=== PATIENT | female | born 1985 | race Caucasian/White ===

== ENCOUNTER 2022-02-16 15:23 | Outpatient (CLI) | payer BC, SELFPAY ==
[2022-02-18 23:15] LABS: Rapid Plasma Reagin (RPR) Non Reactive (Non Reactive)
== END 2022-02-16 15:24 | disposition home or self-care (01) ==
LOC: NFLDREF 15:24
PROVIDERS: PCP Obstetrics & Gynecology; Visit Provider Advanced Practice Midwife
DX: Z34.93 Encounter for supervision of normal pregnancy, unspecified, third trimester (principal); Z3A.29 29 weeks gestation of pregnancy
CPT/HCPCS: 86592

== ENCOUNTER 2022-02-23 14:04 | Outpatient (CLI) | payer BC, SELFPAY ==
--- NOTE | 2022-02-23 14:00 | CRLHL7_ITS ---
For Patients: As a result of the Century Cures Act, medical imaging exams and procedure reports are released immediately into your electronic medical record. You may view this report before your referring provider. If you have questions, please contact your health care provider. INDICATION: Third trimester scan, evaluate growth. COMPARISON: 10/20/2021 TECHNIQUE: Real time greer scale imaging of the fetus was performed. FINDINGS: Sonographic imaging demonstrates a single living intrauterine gestation. Fetus demonstrates a regular cardiac rate of 141 beats per minute. Fetus has a vertex position. The placenta lies posteriorly. Amniotic fluid volume appears normal and there is a single deepest vertical pocket: 5.3 cm. The estimated weight is 1553gm which lies at the 49th %. BPD 65th percentile. HC 69th percentile. AC 66th percentile. FL 15th percent. The HC/AC ratio measures 1.09 range (0.96-1.18). IMPRESSION: Sonographic gestational age 30 weeks 5 days and sonographic due date 04/29/2022. Sonographic age 5 days ahead of the clinical age. Estimated weight 49th percentile. Abdominal circumference 66th percentile. Dictated by Aly Butterfield MD @ 02/23/2022 3:35:56 PM (Electronically Signed)
== END 2022-02-23 14:05 | disposition home or self-care (01) ==
LOC: US 14:05
PROVIDERS: PCP Obstetrics & Gynecology; Visit Provider Physician Assistant
DX: Z34.93 Encounter for supervision of normal pregnancy, unspecified, third trimester (principal); Z3A.30 30 weeks gestation of pregnancy
CPT/HCPCS: 76816

== ENCOUNTER 2022-04-11 12:17 | Outpatient (CLI) | payer BC, SELFPAY ==
--- NOTE | 2022-04-11 12:15 | CRLHL7_ITS ---
For Patients: As a result of the Century Cures Act, medical imaging exams and procedure reports are released immediately into your electronic medical record. You may view this report before your referring provider. If you have questions, please contact your health care provider. OB ULTRASOUND, 04/11/2022 CLINICAL HISTORY: Measuring small for dates. JANES by LMP: 05/04/2022. GA: 36 w, 5 d. Single. Cervix: Not visualized. positioning: Vertex. Amniotic Fluid: 3.8 cm SDP (N: Increase 2 x 1 cm). Placenta: Technique: Transabdominal. Position: Left wall. Doppler: heart rate: 147 bpm. Biometry: BPD: 8.8 cm. 35 w, 3 d, 27 percent. HC: 32.1 cm. 36 w, 2 d, 15 percent. AC: 32.4 cm. 36 w, 2 d, 52 percent. FL: 7.0 cm. 35 w, 6 d, 27 percent. FL/AC ratio: 21.61%. HC/AC ratio: 0.99. EFW: 2852 g. Weight: 6 lbs, 5 oz. age by this US: 36 w, 0 d. JANES by this US: 05/09/2022. Percentile by JANES: 38%. IMPRESSION: Single live intrauterine gestation with composite gestational age of 36 weeks 0 days. JANES of 05/09/2022. Estimated weight is 2852 grams which lies at the 38th percentile. Stephanie Gary M.D. Diagnostic/Breast Radiologist [email or web address] BONNIE/silvino dubois/Dictated by: Stephanie Gary MD @ 04/11/2022 1:35:00 PM (Electronically Signed)
--- OUTSIDE RECORDS SUMMARY | 2022-04-11 12:19 | XMS_ITS | Clinical Summary ---
:1985 Author Organization [employer] [facility] Address [place] [address] Care Team Providers Name Role Phone Pcp, No Primary Care Provider Unavailable Allergies Active Allergy Reactions Severity Noted Date Comments Amoxicillin Hives 05/17/2014 Medications No known medications Active Problems No known active problems Resolved Problems Problem Noted Date Resolved Date Normal delivery at term 01/15/2016 02/27/2016 Encounter for supervision of normal first 09/13/19 16 02/27/2016 Overview: G1 GBS negative Encounter for supervision of normal first in first 06/16/2015 02/27/2016 trimester Immunizations Name Administration Dates Next Due Influenza, IIV4 03/21/2016, 06/16/2015 Influenza, IIV4 (=>6mos) MDV 06/04/2017 Tdap 11/04/2015 Family History Medical History Relation Name Comments Stroke Maternal Grandmother Allergies Sister Relation Name Status Comments Father Alive Maternal Grandfather Maternal Grandmother Mother Alive Paternal Grandfather Paternal Grandmother Alive Sister Alive Social History Tobacco Use Types Packs/Day Years Used Date Never Smoker Smokeless Tobacco: Never Used Tobacco Cessation: Counseling Given: Yes Alcohol Use Standard Drinks/Week Comments No 0 (1 standard drink = 0.6 oz pure alcoho l) Sex Assigned at Date Recorded Not on file Obstetrics History Para Term AB IAB SAB Ectopic Multiple Living Live Births 1 1 1 0 0 0 0 0 0 1 1 Date Outcome GA Total Labor/2nd/3rd Weight Sex Delivery Anes PTL Ariela A 1 A5 Name Clin Labor 01/14 Term 40w 3.32 kg F Vag None Lanny 7 8 FETZE /2016 4d (7 lb 5 ng R,BG oz) ELSA Complications: None Delivery Location: [facility] Last Filed Vital Signs Vital Sign Reading Time Taken Comments Blood Pressure 99/67 05/25/2020 10:28 AM INSTRUMENTATION SUPERVISOR Pulse 87 05/25/2020 10:28 AM INSTRUMENTATION SUPERVISOR Temperature 36.7 ??C (98 ??F) 05/25/2020 10:28 AM INSTRUMENTATION SUPERVISOR Respiratory Rate 18 01/19/2016 12:00 PM CDT Oxygen Saturation 99% 05/25/2020 10:28 AM INSTRUMENTATION SUPERVISOR Inhaled Oxygen Concentration - - Weight 56.2 kg (124 lb) 02/17/2018 11:34 AM CDT Height 160.7 cm (5' 3.25) 02/17/2018 11:34 AM CDT Body Mass Index 21.79 02/17/2018 11:34 AM CDT Plan of Treatment Health Maintenance Due Date Last Done Comments Hepatitis C screening for age 18-79 11/29/2003 BMI (ht and wt on same day) for age 0802/17/2019 02/17/2018, 02/27/2016, 18+ 10/31/2015 COVID-19 vaccine series (4 - Booster 08/10/2021 06/15/2021, 10/20/2020, for Moderna series) 09/21/2020 Influenza for age 9-49 03/08/2022 06/04/2017, 03/21/2016, 06/16/2015 Depression screening for age 12+ 04/11/2022 04/11/2021 Pap test for age 21-65 03/04/2023 03/04/2020, 03/04/2020, 06/16/2015 Tetanus booster 11/03/2025 11/04/2015 Tdap Completed 11/04/2015 Results Not on filefrom Last 3 Months Insurance Payer Benefit Plan / Subscriber ID Effective Dates Phone Addre ss Type Group [employer] [place] [employer] [id number] 2018-Present [address] [address] [place] [address] Advance Directives Latest Code Status on File Code Status Date Activated Date Inactivated Comments Full Code 01/15/2016 3:06 PM 01/17/2016 12:23 AM Full Code 01/15/2016 12:28 PM 01/15/2016 3:06 PM Full Code 01/15/2016 11:49 AM 01/15/2016 12:28 PM Care Teams Pharmaceutical Officer Relationship Specialty Start Date End Date Pcp, No PCP - General 05/25/21 .
== END 2022-04-11 12:18 | disposition home or self-care (01) ==
PROVIDERS: PCP Obstetrics & Gynecology; Visit Provider Obstetrics & Gynecology
DX: O36.5930 Maternal care for other known or suspected poor fetal growth, third trimester, not applicable or unspecified (principal); Z3A.36 36 weeks gestation of pregnancy
CPT/HCPCS: 76816; 87081; 87653

== ENCOUNTER 2022-04-18 14:58 | Outpatient (CLI) | payer BC, SELFPAY ==
--- OUTSIDE RECORDS SUMMARY | 2022-04-18 15:00 | XMS_ITS | Clinical Summary ---
:1985 Author Organization [employer] [facility] [place] [address] Care Team Providers Name Role Phone Pcp, [...] R,BG oz) ELSA Complications: None Delivery Location: [facility] Last Filed Vital Signs Vital Sign Reading Time Taken Comments Blood Pressure 99/67 05/25/2020 10:28 AM EXECUTIVE CYBER LEADER Pulse 87 05/25/2020 10:28 AM EXECUTIVE CYBER LEADER Temperature 36.7 ??C (98 ??F) 05/25/2020 10:28 AM EXECUTIVE CYBER LEADER Respiratory Rate 18 01/19/2016 12:00 PM CDT Oxygen Saturation 99% 05/25/2020 10:28 AM EXECUTIVE CYBER LEADER Inhaled Oxygen Concentration - - Weight 56.2 [...] Type Group [employer] [id number] 2018-Present [address] [address] [place] [address] Advance Directives Latest Code Status on File Code Status Date Activated Date Inactivated Comments Full Code 01/15/2016 3:06 PM 01/17/2016 12:23 AM Full Code 01/15/2016 12:28 PM 01/15/2016 3:06 PM Full Code 01/15/2016 11:49 AM 01/15/2016 12:28 PM Care Teams Operating Room Rn Relationship Specialty Start Date End Date Pcp, No PCP - General 05/25/21 .
== END 2022-04-18 14:59 | disposition home or self-care (01) ==
LOC: US 14:59
PROVIDERS: PCP Obstetrics & Gynecology; Visit Provider Pediatrics Neonatal-Perinatal Medicine
DX: O09.523 Supervision of elderly multigravida, third trimester (principal); Z3A.37 37 weeks gestation of pregnancy
CPT/HCPCS: 76816

== ENCOUNTER 2022-04-30 16:38 | Outpatient (CLI) | payer BC, SELFPAY ==
--- OUTSIDE RECORDS SUMMARY | 2022-04-30 16:41 | XMS_ITS | Clinical Summary ---
:1985 Author Organization [employer] [facility] [place] [address] Care Team Providers Name Role Phone Pcp, [...] R,BG oz) ELSA Complications: None Delivery Location: [facility] Last Filed Vital Signs Vital Sign Reading Time Taken Comments Blood Pressure 99/67 05/25/2020 10:28 AM TRACK DRESSER Pulse 87 05/25/2020 10:28 AM TRACK DRESSER Temperature 36.7 ??C (98 ??F) 05/25/2020 10:28 AM TRACK DRESSER Respiratory Rate 18 01/19/2016 12:00 PM CDT Oxygen Saturation 99% 05/25/2020 10:28 AM TRACK DRESSER Inhaled Oxygen Concentration - - Weight 56.2 [...] Type Group [employer] [id number] 2018-Present [address] [address] [place] [address] Advance Directives Latest Code Status on File Code Status Date Activated Date Inactivated Comments Full Code 01/15/2016 3:06 PM 01/17/2016 12:23 AM Full Code 01/15/2016 12:28 PM 01/15/2016 3:06 PM Full Code 01/15/2016 11:49 AM 01/15/2016 12:28 PM Care Teams Rv Repairer Relationship Specialty Start Date End Date Pcp, No PCP - General 05/25/21 .
[2022-04-30 16:58] VITALS: BP 130/79; PULSE 75
[2022-04-30 17:34] LABS: Amnisure Rom* Negative
--- NOTE | 2022-04-30 18:05 | CRLHL7_ITS ---
For Patients: As a result of the Century Cures Act, medical imaging exams and procedure reports are released immediately into your electronic medical record. You may view this report before your referring provider. If you have questions, please contact your health care provider. INDICATION: Decelerations on monitoring. TECHNIQUE: Ultrasound OB pelvis. COMPARISON: 04/18/2022 FINDINGS: Sonographic imaging demonstrates a single living intrauterine gestation. Fetus demonstrates a regular cardiac rate of 106 beats per minute. Fetus has a breech orientation. The placenta lies on the maternal left. Nuchal cord is noted (x2). Amniotic fluid volume appears normal with the single deepest pocket measuring 4.5 cm. breathing movements, motion, and tone were all observed. IMPRESSION: 1. Single live intrauterine with a biophysical profile of 8/8. 2. Nuchal cord. 3. heart rate of 106. Dictated by David Elizabeth MD @ 04/30/2022 8:03:55 PM (Electronically Signed)
[2022-04-30 20:22] VITALS: BP 151/83; PULSE 70
[2022-04-30 20:37] VITALS: BP 127/70; PULSE 74
--- NOTE | 2022-04-30 21:13 | PM.OBLDTN ---
OB - Triage/Final Diagnosis Visit Information Time Seen by Provider: 08:00 Date Seen: 04/30/22 Date of evaluation: 04/30/22 Narrative: The patient is a 36 year old 4 para 2011 at 39 weeks 3 days gestation by LMP, who presents with rule out leakage of fluid. Patient noted increase leakage of fluid in the last few hours. No big gush. Minimal contractions. She did state that she had a lot of contractions yesterday but she had a busy day going to her daughters swim competition. This contractions have resolved. Patient note increased movement. Denies any vaginal bleeding. AmniSure was negative today. While getting an NST, patient had 2 variables that resolved without intervention. Due to the variables, prolonged monitoring for 2 hours on the NST was done. Additionally, BPP was done. BPP was 8/8. SDP 4.5 cm. Nuchal cord x2 was noted (likely the cause of her initial variables). Additionally fetus is now in the breech orientation. Patient has had 3 other ultrasounds during this (1 antomy scan and 2 others for growth assessments due to uterine size-date discrepancy), with the latest besides this one being on 04/18/2022. All previous scans and Tong assessments noted vertex presentation. movement easily visualized on patient's abdomen. I discussed the ultrasounds finding with the patient. She is distressed that her baby is now breech. We discussed ECV versus scheduled primary at 40 weeks. She strongly desires ECV as she has already had two vaginal deliveries. Will schedule her ECV for tomorrow morning. Patient is happy with the plan. Wellbeing Admission US: Presentation breech/Placental location posterior/SDP 4.5 cm EFW 2916 g, 25.8%ile, AC 29%tile NST: Reactive and reassuring after 2 hours of monitoring. BPP 8/8 Kidder: Irregular contractions SVE: /ball Basic anatomy scan reviewed: normal anatomy scan Dispo: Stable and appropriate for discharge from triage given reassuring. Plan on returning tomorrow a.m. for ECV, patient will be added on to Dr. St's schedule. I discussed plan with Dr. St (2nd OB attending will likely OB attending research environmental engineer). Strong labor precautions given and patient verbalized understand. Evaluation Cervical dilation (cm): 1 Cervical effacement (%): 50 Laboratory results: Laboratory Tests 04/30/22 Range/Units 17:08 Membrane Rupture Negative Vital signs: Vital Signs - 24 hr 04/30/22 16:58 04/30/22 20:22 04/30/22 20:37 Pulse Rate 75 70 74 Blood Pressure 130/79 151/83 H 127/70 Final Diagnosis (1) Breech presentation: Status: Acute
--- NOTE | 2022-05-01 01:10 | PC.OBNST ---
NST Note NST Note Start: 04/30/22 17:01 Freq: ONCE Status: Active Protocol: Document 04/30/22 21:06 [facility] (Rec: 05/01/22 01:09 [facility] [id number]) NST Note 4 Para (# of births) 2 EDC 05/04/22 Gestational Age In Weeks & Days 39 Weeks & 4 Days Patient Presented with Complaint(s) of Leaking fluid Other Complaints Decel noted; BPP 8/8. Position breech. Reactive Yes Appropriate for Gestational Age Yes DEMETRIO Hays, RNC Date 04/30/22 Reactive Yes Appropriate for Gestational Age Yes DEMETRIO Gaines, RNC Date 04/30/22 OB NST charge Yes Complete NST Note via Write Note Yes The provider's electronic signature indicates the NST is reactive/appropriate for gestational age. *Note to provider: If an addendum is required, open the patient's chart and click on the note under the Nurse/Allied Health tab.
== END 2022-04-30 21:06 | disposition home or self-care (01) ==
LOC: OB OUT 16:39 → OB 16:40
PROVIDERS: PCP Obstetrics & Gynecology; Visit Provider Obstetrics & Gynecology
DX: O32.1XX0 Maternal care for breech presentation, not applicable or unspecified (principal)
CPT/HCPCS: 59025; 76819; 84112; 99213

== ENCOUNTER 2022-05-01 11:37 | Inpatient (IN) | payer BC, SELFPAY ==
[2022-05-01] VITALS (63 sets, daily range): BP systolic 97–133; BP diastolic 50–80; PULSE 75–116; RESP 16; TEMP 36.7–37.1; O2SAT 90–100; BMI 27.1
--- OUTSIDE RECORDS SUMMARY | 2022-05-01 08:22 | XMS_ITS | Clinical Summary ---
:1985 Author Organization [employer] [facility] [place] [address] Care Team Providers Name Role Phone Pcp, [...] R,BG oz) ELSA Complications: None Delivery Location: [facility] Last Filed Vital Signs Vital Sign Reading Time Taken Comments Blood Pressure 99/67 05/25/2020 10:28 AM LOCKSTITCH COLLAR SETTER Pulse 87 05/25/2020 10:28 AM LOCKSTITCH COLLAR SETTER Temperature 36.7 ??C (98 ??F) 05/25/2020 10:28 AM LOCKSTITCH COLLAR SETTER Respiratory Rate 18 01/19/2016 12:00 PM CDT Oxygen Saturation 99% 05/25/2020 10:28 AM LOCKSTITCH COLLAR SETTER Inhaled Oxygen Concentration - - Weight 56.2 [...] Type Group [employer] [id number] 2018-Present [address] [address] [place] [address] Advance Directives Latest Code Status on File Code Status Date Activated Date Inactivated Comments Full Code 01/15/2016 3:06 PM 01/17/2016 12:23 AM Full Code 01/15/2016 12:28 PM 01/15/2016 3:06 PM Full Code 01/15/2016 11:49 AM 01/15/2016 12:28 PM Care Teams Memory Care Program Resident Relationship Specialty Start Date End Date Pcp, No PCP - General 05/25/21 .
[2022-05-01] MEDS: TERBUTALINE 1 MG/ML INJ 0.25 MG SUBCUT (10:10)
[2022-05-01] MEDS: LACTATED RINGERS 1000 ML 1,000 ML 800 ML IV (10:42)
[2022-05-01 11:05] LABS: SARS PCR* Negative SARS-CoV-2 (Negative)
--- NOTE | 2022-05-01 11:22 | PM.PROC ---
Procedure Note Date Seen: 05/01/22 Date of procedure: 05/01/22 Will [facility] bill your pro fee for this procedure?: Yes Pre-op diagnosis: Breech presentation Post-op diagnosis: other (Vertex presentation) Procedure: PREOPERATIVE DIAGNOSIS: 1. Intrauterine at 39 4/7 weeks gestation. 2. Unstable lie, currently complete breech presentation, oblique, with head in the maternal right upper quadrant and breech in maternal left lower quadrant, back up. POSTOPERATIVE DIAGNOSIS: 1. Intrauterine at 39 4/7 weeks gestation. 2. Unstable lie, currently vertex presentation. PROCEDURE: 1. Nonstress test. 2. Limited OB ultrasound. 3. External cephalic version. SURGEON: Alma Rosa. SHEET METAL LAYOUT MECHANIC: Ross. ANESTHESIA: None. COMPLICATIONS: None. FINDINGS: Nonstress test: heart rate baseline 130 beats per minute, good variability, 15 x 15 accelerations present, no decelerations, category 1. Limited OB ultrasound: Single, living, intrauterine gestation in a complete breech presentation, oblique, with head in the maternal right upper quadrant and breech in maternal left lower quadrant, back up presentation, grossly normal amniotic fluid volume, placenta anterior to the left. PROCEDURE NOTE: A nonstress test was performed, which was reactive and reassuring. A limited OB ultrasound was performed at the bedside to determine position. Findings noted above. Informed consent was obtained for external cephalic version. Terbutaline 0.25 mg was administered to the patient subcutaneously. The patient was placed in the dorsal supine position. External cephalic version was attempted. I applied upward pressure to the breech, Dr. Hawkins applied pressure to the vertex, and we attempted to gently coax the fetus in a forward roll in a counter-clockwise direction. This attempt was successful. heart tones were noted to be normal immediately after the external cephalic version by ultrasound, and then a deceleration was visualized to the 70s. The patient was repositioned to the right lateral recumbent, and then to left lateral recumbent position, and heart tones obtained by external monitoring increased to the 1 teens, then the 120s, and then 130s. There was good variability throughout. The patient tolerated the procedure well. monitoring for 1 hour after the procedure was continued to be reassuring. Due to the unstable lie, the plan was discussed with the patient to admit her for cervical ripening and induction of labor. Please see 's admit note note for further details Surgeon: Clementine St MD
--- NOTE | 2022-05-01 11:24 | P.LDBA_ITS ---
Subjective History of Present Illness Narrative: Patient is being admitted to Labor and Delivery for IOL. She is a 36 year old at 39 4/7 weeks gestation by LMP consistent with 1st trimester US. Her fetus has had unstable lie, converting from cephalic to breech in the last week. She had a successful external cephalic version this AM. Problem List: 1.? Mildly prominent NT on first-trimester ultrasound Repeat NT measurement at 12 weeks:? 1.22 mm Negative first trimester screen. 2.? AMA See above. Considering maternity T21:? Declined Level 2 ultrasound:? 12/27/2021, normal anatomic survey. EFW = 43%. 3.? Posterior mid intramural fibroid, 3.4 x 2.8 x 3.4 cm 4.? History of fast labor and delivery 5.? Family history of PE and DVT. Father had PE at age 50.? Workup negative for thrombophilia Mother had a DVT, provoked. Patient sister was screened and was negative Patient has no history of blood clots Aspirin 81 mg - advised patient to stop aspirin at 36 weeks. 6.? COVID vaccinated and boosted 7. Molar 10/30/19. Conceived her 2nd child after 1 non- BhcG level. 8. Size less than dates 02/16/22 * Growth ultrasound 02/23/2022:? SDP 5.3 cm..? EFW 49%, BDP 65%, HC 69%, AC 66%, FL 15%FH today showed 33 cm; no growth from last measurement * Growth ultrasound 04/18/2022:? EFW 6# 7oz (26%), SDP 3.8 cm (normal) Her full history and physical was dictated by Dr. Zavala on 04/25/22. Please see this for details. OB - H&P: Exam Physical Exam: Vital signs: Pulse BP Pulse Ox 75 118/79 100 05/01/22 09:00 05/01/22 09:00 05/01/22 11:23 Narrative: Physical exam: General: No acute distress Psych: Alert and oriented x3, full affect HEENT: Normocephalic, atraumatic Neck: No cervical adenopathy, no thyromegaly Heart: Regular rate and rhythm, no murmur rub or gallop Lungs: Clear to auscultation bilaterally Abdomen: Soft, nontender, gravid, now cephalic lie Lower extremities: No edema or erythema Pelvic exam: Cervix 3 / 75 / -2 / midposition / moderate consistency Baseline 130 / accels present / deceleration shortly after successful version, then baseline 110s, slowly increasing back to 130 OB - Problem Based A/P Additional Plan (1) Unstable lie: Status: Acute Plan: 36-year-old [id number] woman at 39 weeks, 4 days gestation with unstable lie, now status post successful external cephalic version. Currently with favorable cervix. History of rapid labor. Currently with category 1 testing GBS negative Plan Begin Pitocin for induction of labor. Reassess with regular contractions, and plan for AROM when feasible.
[2022-05-01] MEDS: OXYTOCIN 30 unit/500 ML in NS 30 UNIT/500 ML BAG IVPB (12:09)
[2022-05-01 13:08] LABS: Basophils Percent Auto 0.2 % (0.0-3.0); Eosinophils Percent Auto 0.9 % (0.0-7.0); Hematocrit 37.5 % (33.0-51.0); Hemoglobin* 12.3 gm/dL (12.0-16.0); Immature Granulocytes Abs Auto 0.02 K/uL (0.00-0.30); Lymphocytes Percent Auto 30.6 % (20-44); Mean Corpuscular HGB Conc 33 gm/dL (32-36); Mean Corpuscular Hemoglobin 29 pg (26-34); Mean Corpuscular Volume 90 fL (80-100); Monocytes Percent Auto 7.6 % (0.0-11.0); Neutrophils Percent Auto 60.3 % (42.0-72.0); Platelet Count* 165 K/uL (140-440); RDW Coefficient of Variation % 13.7 % (11.5-15.5); Red Blood Count 4.18 m/uL (4.00-5.20); White Blood Count* 4.45 K/uL (4.50-11.00)
[2022-05-01 13:16] LABS: Slide Review Reflex No
--- NOTE | 2022-05-01 13:57 | PM.OBPNL ---
Subjective Time Seen by Provider: 13:58 Date Seen: 05/01/22 Narrative: Elsa is feeling regular contractions. Objective Exam: Gen - NAD SVE - 4 / 80 / -1 / midposition / soft Vertex well applied to cervix AROM for scant blood fluid Vital Signs: Last Vital Signs Pulse 75 05/01/22 09:00 BP 118/79 05/01/22 09:00 Pulse Ox 100 05/01/22 11:28 Comments: tracing: Baseline 140, accelerations present, recurrent brief variable deceleration, moderate variability Contractions Monitor mode: External Contraction Frequency: Q 2-4 minutes Assessment Assessment: induction ongoing and early labor Status: Category ll (overall reassuring) Maternal Status: History of rapid labor Plan Plan: Epidural as desired. Continuous monitoring. Continue pitocin augmentation.
[2022-05-01] MEDS: ROPIVACAINE 0.2% 100 ml 100 ML 12 MG EPIDURAL (14:27)
--- NOTE | 2022-05-01 14:44 | PM.ANBPRC ---
[facility] Medical History (Updated 05/01/22 @ 13:04 by Paris Hawkins MD) AMA (advanced maternal age) multigravida 35+ History of molar (10/30/19) Social History Smoking Status: Never smoker Meds Home Medications and Allergies Home Medications Medication Instructions Recorded Confirmed Type prenat.vits,swathi,mjq-bict-xiixr 1 tab PO QDAY 01/24/22 05/01/22 History aspirin 81 mg capsule 81 mg PO QDAY 02/23/22 05/01/22 History docusate sodium 100 mg capsule 100 mg PO QDAY 04/11/22 05/01/22 History (Colace) Allergies Allergy/AdvReac Type Severity Reaction Status Date / Time amoxicillin Allergy Mild Hives Verified 04/25/22 11:14 Penicillin Allergy Mild Hives Uncoded 04/25/22 11:14 Results Labs Labs: Laboratory Results - last 24 hr 05/01/22 05/01/22 05/01/22 08:10 08:10 10:15 WBC 4.45 L RBC 4.18 Hgb 12.3 Hct 37.5 MCV 90 MCH 29 MCHC 33 RDW Coeff of Dylan 13.7 Plt Count 165 Neut % (Auto) 60.3 Lymph % (Auto) 30.6 [place] % (Auto) 7.6 Eos % (Auto) 0.9 Baso % (Auto) 0.2 Neut # (Auto) 2.70 Lymph # (Auto) 1.40 [place] # (Auto) 0.30 Eos # (Auto) 0.00 Baso # (Auto) 0.00 Abs Immat Gran (auto) 0.02 SARS-CoV-2 (PCR) Negative SARS-CoV-2 Blood Type A Positive Antibody Screen POSITIVE Vital Signs Vital Signs: Last Vital Signs Pulse 93 05/01/22 14:44 BP 100/57 L 05/01/22 14:44 Pulse Ox 98 05/01/22 14:41 Weight: 69.4 kg Height: 160.02 cm Anesthesia Procedures Epidural Insertion Patient Location: OB Start Time: 13:45 Stop Time: 14:45 Start Date: 05/01/22 Stop Date: 05/01/22 Reason for Block: procedure for pain Patient Position: sitting Performed By: Kevan López Preanesthetic Checklist: IV checked, risks and benefits discussed, surgical consent, monitors and equipment checked, pre-op evaluation, timeout performed and anesthesia consent Prep: chlorhexidine gluconate Monitoring: blood pressure monitoring, continuous pulse oximetry and heart rate Approach: midline Vertebral Space: lumbar (1-5) Epidural Technique: ANALI saline Needle Type: Tuohy needle Injection Technique: continuous catheter Needle gauge: 17 Needle Length (cm): 10 cm Needle Insertion Depth (cm): 6 Catheter Gauge: 19 Catheter Type: multi-orifice Catheter at skin depth (cm): 12 Test Dose Result: negative and lidocaine 1.5% with epinephrine 1 to 200,000
[2022-05-01] MEDS: LACTATED RINGERS 1000 ML 1,000 ML 125 ML IV (15:31)
[2022-05-01 16:06] LABS: Basophils Absolute Auto 0.01 K/uL (0.00-0.30); Basophils Percent Auto 0.2 % (0.0-3.0); Eosinophils Absolute Auto 0.01 K/uL (0.00-0.50); Eosinophils Percent Auto 0.2 % (0.0-7.0); Hematocrit 36.2 % (33.0-51.0); Hemoglobin* 11.9 gm/dL (12.0-16.0); Immature Granulocytes Abs Auto 0.01 K/uL (0.00-0.30); Lymphocytes Percent Auto 16.5 % (20-44); Mean Corpuscular HGB Conc 33 gm/dL (32-36); Mean Corpuscular Hemoglobin 30 pg (26-34); Mean Corpuscular Volume 91 fL (80-100); Monocytes Percent Auto 4.1 % (0.0-11.0); Neutrophils Percent Auto 78.8 % (42.0-72.0); Platelet Count* 152 K/uL (140-440); RDW Coefficient of Variation % 13.9 % (11.5-15.5); White Blood Count* 5.57 K/uL (4.50-11.00)
[2022-05-01 16:18] LABS: Slide Review Reflex No
[2022-05-01 16:45] LABS: INR 0.97 (0.91-1.10); Prothrombin Time 13.5 Seconds
[2022-05-01 16:46] LABS: Partial Thromboplastin Time* 27 Seconds (23-33)
[2022-05-01] MEDS: LACTATED RINGERS 1000 ML 1,000 ML 100 ML IV ×3 (16:47→21:47)
[2022-05-01] MEDS: fentaNYL 100 MCG/2 ML inj EPIDURAL (16:55)
[2022-05-01] MEDS: CEFAZOLIN 2 GM INJ IVP (17:00)
--- NOTE | 2022-05-01 18:42 | P.NB_ITS ---
Nerve Block Nerve Block Time Seen by Provider: 18:30 Date Seen: 05/01/22 Type of block requested by surgeon for post-operative analgesia: TAP Side: bilateral Time out performed: Yes Verification of patient name: Yes Verification of date of : Yes Site marking: site marked Name of person performing procedure: seymour Continuous monitoring Was continuous monitoring of O2 sat, B/P, residential interior designer, recorded every 15 minutes?: Yes Procedure Checklist: sterile prep, needles and gloves Ultrasound guided. Images saved: Yes Medications given in 5ml increments after negative aspiration: Marcaine %: 0.25 mL: 30 Needle gauge: 20 and Exparel mL: 10 Needle gauge: 20 Patient tolerated procedure well: Yes Block Charges Block Charge (with Pro Fee): TAP Bilateral Use of Ultrasound Machine for Block: Yes- US Guidance/pain block
--- NOTE | 2022-05-01 18:50 | W.ANESCHARGE ---
Anesthesia Charges Start Date/Time Anesthesia Start Date: 05/01/22 Anesthesia Start Time: 16:43 Stop Date/Time Anesthesia Stop Date: 05/01/22 Anesthesia Stop Time: 18:48 Summary Emergency: Yes
[2022-05-01 19:17] LABS: Fibrinogen* 521 mg/dL (200-450)
--- NOTE | 2022-05-01 19:17 | P.OBPRC_ITS ---
Procedure Pre-op/Post-op diagnoses: Pre-Op/Post-Op Diagnoses Operation Date: 05/01/22 17:15 <No data on this case meets the specified criteria> Procedure Done: Global Procedure Details: Procedures Operation Date: 05/01/22 17:15 Actual Procedure Side Surgeon p Section Paris Hawkins MD Take Down Sorter: Clementine St Narrative: PREOPERATIVE DIAGNOSIS: Nonreassuring status POSTOPERATIVE DIAGNOSIS: Nonreassuring status PROCEDURE: Primary low-transverse section SURGEON: Paris Hawkins MD FURNACE OPERATOR AND TENDER: Bonnie St MD ANESTHESIA: Epidural IV FLUIDS: 2 L crystalloid QBL: 1204 mL FINDINGS: 1. Male , cephalic 0 P presentation, nuchal cord x1, Apgars of 8 and 9, weight 6 lb, 11 oz 2. Small paratubal cysts along the left side, largest approximately 2 cm in greatest dimension. This was removed. Otherwise normal appearance to uterus, bilateral tubes and ovaries. COMPLICATIONS: Intrapartum hemorrhage as noted above, related to diffuse bleeding along the bladder reflection. Patient was found to be complete when fetus exhibited a deceleration into the 70s. The deceleration was prolonged, lasting several minutes. This did recover, and patient attempted to push, but another deceleration occurred. Decision was made to proceed to the operating room for emergent . However, upon arrival in operating room, heart rate was in the 140s. Therefore, epidural anesthesia was used in lieu of general anesthesia. Verbal consent was obtained for . PROCEDURE IN DETAIL: Patient was taken to the operating room with IV running. She received cefazolin in preoperative prophylaxis. Epidural anesthesia had previously been administered. Fisher catheter was inserted. She was prepped and draped in the usual sterile fashion. Anesthesia was tested and found to be adequate. A low-transverse skin incision was made with a scalpel and carried through to the underlying layer of fascia with the scalpel. The subcutaneous fat was dissected off the underlying fascia with Bovie. The fascia was nicked in the midline with a scalpel, and this incision was extended laterally with scissors. The rectus muscles were in the midline. Peritoneum was identified and entered bluntly. Bovie was used to widen this opening laterally. Nas O retractor was inserted and tightened down, providing excellent visualization of the lower uterine segment. The bladder reflection was found to be advanced along the lower uterine segment. A bladder flap was created with a combination of sharp and blunt dissection. Low-transverse uterine incision was made with a scalpel. Incision was widened bluntly. The infant's head was grasped through the hysterotomy and delivered with the help of fundal pressure. The remainder of the body delivered without incident. Cord was clamped and cut after 30 seconds. was handed off to attending nurses. The placenta was delivered with gentle traction on the cord. The uterus was cleaned of all clots and debris with the dry lap pad. The hysterotomy was reapproximated with 0 Vicryl in a running, locked fashion. Second layer of the same suture was used in imbricating fashion. There was abundant bleeding in the crevice between the bladder and the lower uterine segment. This required multiple hozfaw-gv-ymimj sutures of 2-0 chromic. There was also abundant bleeding along the bladder reflection, treated in a similar fashion with numerous sutures of 2-0 chromic. Additionally, ocwcha-df-gwoxv sutures were required along the lower uterine segment adjacent to the hysterotomy, ultimately obtaining hemostasis. The adnexa were examined and noted to be normal in appearance, aside from small paratubal cyst along the left tubal fimbria. One of the cyst was amputated with Bovie.. The cul-de-sac and gutters were cleansed with dampened laparotomy sponge, removing any further clots and debris. The Nas O retractor was removed. The hysterotomy was reexamined and bleeding was again found. More wqpnci-ga-ohpie sutures of chromic were used, and Bovie was also used to obtain hemostasis. Gelfoam was placed along the raw areas that had bleeding adjacent to the dissection of the bladder flap, between the bladder and the lower uterine segment. The peritoneum was reapproximated with 2 0 Vicryl in a running fashion. The rectus muscles were examined and found to be hemostatic. The fascia was reapproximated with 0 Vicryl in a running fashion. Subcutaneous fat was irrigated and Bovie used on oozing vessels. The skin was closed with a subcuticular stitch of 4-0 Vicryl. Surgical glue was applied above this. Patient tolerated procedure well was taken to recovery area in stable condition.
[2022-05-02] VITALS (26 sets, daily range): BP systolic 100–114; BP diastolic 67–74; PULSE 78–88; RESP 16; TEMP 36.5–36.7; O2SAT 96–98
[2022-05-02] MEDS: KETOROLAC 30 MG/ML inj IVP ×4 (00:15→18:31)
[2022-05-02] MEDS: SODIUM CHLORIDE 0.9 % (FLUSH) 10 ML SYRINGE IVF ×2 (00:15→06:16)
[2022-05-02] MEDS: LANOLIN CREAM 1 APPLIC TOPICAL (03:49)
[2022-05-02] MEDS: ACETAMINOPHEN 500 MG TABLET 1000 MG PO ×3 (04:34→21:54)
[2022-05-02 07:56] LABS: Basophils Absolute Auto 0.01 K/uL (0.00-0.30); Basophils Percent Auto 0.1 % (0.0-3.0); Eosinophils Absolute Auto 0.03 K/uL (0.00-0.50); Eosinophils Percent Auto 0.4 % (0.0-7.0); Hematocrit 29.4 % (33.0-51.0); Hemoglobin* 9.8 gm/dL (12.0-16.0); Immature Granulocytes Abs Auto 0.01 K/uL (0.00-0.30); Lymphocytes Percent Auto 14.2 % (20-44); Mean Corpuscular HGB Conc 33 gm/dL (32-36); Mean Corpuscular Hemoglobin 30 pg (26-34); Mean Corpuscular Volume 90 fL (80-100); Monocytes Percent Auto 5.4 % (0.0-11.0); Neutrophils Percent Auto 79.8 % (42.0-72.0); Platelet Count* 137 K/uL (140-440); RDW Coefficient of Variation % 13.8 % (11.5-15.5); Red Blood Count 3.26 m/uL (4.00-5.20); White Blood Count* 7.27 K/uL (4.50-11.00)
[2022-05-02 08:01] LABS: Slide Review Reflex No
--- NOTE | 2022-05-02 08:09 | P.OBPN_ITS ---
OB - PN: A/P Assessment and Plan (1) S/P section: Problem details: POD #1 Status: Acute Assessment and Plan: Doing well. Adequate pain control. Discussed surgical details from yesterday. Questions answered. (2) Acute blood loss anemia: Problem details: suspected, Hgb pendning. Status: Acute Assessment and Plan: Hgb pending. Discussed signs/symptoms of anemia. Discussed iron supplementation following discharge. Reviewed indications for and relative risks/benefits of blood transfusion if needed. Plan day: 1 Plan: routine postop care OB - PN: Subj Subjective Date Seen: 05/02/22 Interval history: POD #1 s/p emergent primary LTCS for indications. Blood loss 1200 mL. Patient comments: no complaints and pain well controlled [place] infant status: Narrative: The patient feels generally well this morning. Had some lightheadedness overnight. Is still processing the events of yesterday. is reportedly doing well. . IV is hep-locked. Urinary catheter still in place. Has not been up to ambulate yet today. OB - PN: Obj Exam Physical Exam: Vital signs: Temp Pulse Resp BP Pulse Ox O2 Del Method 97.9 F 88 16 108/70 96 05/02/22 06:15 05/02/22 04:27 05/02/22 06:00 05/02/22 04:27 05/02/22 04:27 05/02/22 04:27 Constitutional: Constitutional: no acute distress and cooperative Routine HEENT Exam: Head: Present atraumatic Routine Respiratory Exam: Respiratory: Present CTA bilaterally Routine Cardiovascular Exam: Cardiovascular: Present RRR Routine Abdominal Exam: Fundus: Present firm Comments: Incision bandaged, dry. Routine Extremities Exam: Extremities: Absent calf tenderness or pedal edema OB - PN: Obj Data Labs Labs: Laboratory Results - last 24 hr 05/01/22 05/01/22 05/01/22 08:10 08:10 10:15 WBC 4.45 L RBC 4.18 Hgb 12.3 Hct 37.5 MCV 90 MCH 29 MCHC 33 RDW Coeff of Dylan 13.7 Plt Count 165 Neut % (Auto) 60.3 Lymph % (Auto) 30.6 [place] % (Auto) 7.6 Eos % (Auto) 0.9 Baso % (Auto) 0.2 Neut # (Auto) 2.70 Lymph # (Auto) 1.40 [place] # (Auto) 0.30 Eos # (Auto) 0.00 Baso # (Auto) 0.00 Abs Immat Gran (auto) 0.02 INR APTT Fibrinogen SARS-CoV-2 (PCR) Negative SARS-CoV-2 Blood Type A Positive Antibody Screen POSITIVE 05/01/22 05/01/22 05/02/22 16:00 16:00 07:38 WBC 5.57 7.27 RBC 4.00 3.26 L Hgb 11.9 L 9.8 L Hct 36.2 29.4 L MCV 91 90 MCH 30 30 MCHC 33 33 RDW Coeff of Dylan 13.9 13.8 Plt Count 152 137 L Neut % (Auto) 78.8 H 79.8 H Lymph % (Auto) 16.5 L 14.2 L [place] % (Auto) 4.1 5.4 Eos % (Auto) 0.2 0.4 Baso % (Auto) 0.2 0.1 Neut # (Auto) 4.40 5.80 Lymph # (Auto) 0.90 1.00 [place] # (Auto) 0.20 0.40 Eos # (Auto) 0.01 0.03 Baso # (Auto) 0.01 0.01 Abs Immat Gran (auto) 0.01 0.01 INR 0.97 APTT 27 Fibrinogen 521 H SARS-CoV-2 (PCR) Blood Type Antibody Screen
[2022-05-02] MEDS: DOCUSATE SODIUM 100 MG CAPSULE PO (12:12)
[2022-05-02] MEDS: FERROUS SULFATE 325 MG TABLET PO (12:12)
[2022-05-03 00:16] VITALS: BP 102/61; PULSE 91; RESP 16; O2SAT 97
[2022-05-03] MEDS: IBUPROFEN 600 MG TABLET PO ×2 (00:18→08:29)
[2022-05-03] MEDS: ACETAMINOPHEN 500 MG TABLET 1000 MG PO ×2 (03:57→11:50)
--- NOTE | 2022-05-03 08:18 | P.DS_ITS ---
DS: Providers Provider Date Seen: 05/03/22 Date of admission: 05/01/22 11:37 Primary care physician: Shanthi Davis MD Admitting Clinician: Paris Hawkins MD Attending Physician on discharge: Clementine St MD Date of Discharge: 05/03/22 Exam Const: Vital Signs, click to edit/add: Vital Signs - 24 hr 05/02/22 08:42 05/02/22 09:00 05/02/22 12:21 Temperature 97.9 F 97.9 F Pulse Rate [Pulse Oximeter] 84 78 Respiratory Rate 16 16 16 Blood Pressure [Ri ght Arm] 112/71 100/67 Pulse Oximetry 97 96 Oxygen Delivery Me thod Room Air Room Air 05/02/22 15:35 05/02/22 10:00 05/02/22 11:00 Temperature 98 F Pulse Rate [Pulse Oximeter] 86 Respiratory Rate 16 16 16 Blood Pressure [Ri ght Arm] 114/74 Pulse Oximetry 97 Oxygen Delivery Me thod Room Air 05/02/22 12:00 05/02/22 13:00 05/02/22 14:00 Temperature Pulse Rate [Pulse Oximeter] Respiratory Rate 16 16 16 Blood Pressure [Ri ght Arm] Pulse Oximetry Oxygen Delivery Me thod 05/02/22 15:00 05/03/22 00:16 Temperature Pulse Rate [Pulse Oximeter] 91 Respiratory Rate 16 16 Blood Pressure [Ri ght Arm] 102/61 Pulse Oximetry 97 Oxygen Delivery Me thod Room Air DS: Data Data Completed and Pending Labs on day of discharge: Labs from last 24 hours 05/01/22 08:10 Antibody Identification No Antibodies Found by [facility] OB - DS: Summary Hospital Course Hospital Course: Patient is a 36year old, G 4 now P 3? admitted on 05/01/2022 at 39 Weeks, 6 Days gestation for external version. She was then induced for unstable lie.?A few hours after the induction, multiple prolonged decelerations were noted. The decision was made to proceed to a for intolerance of labor. She had an uncomplicated delivery.? She delivered a viable male infant.? She is breast feeding and reports things are well.? the patient has done well.? Her?pain is well controlled with current medications.? She has no new complaints. Vitals have been stable.?She has remained afebrile.?She is voiding without difficulty.?She is passing gas and has not had a bowel movement.?She is ambulating and denies any dizziness.?She is planning condoms for control, but is considering other options. Reviewed other options that are considered compatible with breast feeding.??? Discharge Examination? GENERAL APPEARANCE:? normal affect, alert, no distress? MOOD:? appropriate? CHEST:? clear to auscultation and percussion? HEART:? regular rate and rhythm? ABDOMEN:? soft, non-tender the uterine fundus is 2 cm Below Umbilicus, Midline and is appropriate for the stage of recovery.?Her incision is well approximated without edema, drainage, or bruising. PERINEUM:? no edema of the perineum. EXTREMITIES:? normal and no edema? Discharge Criteria? Patient has no complaints? No active bleeding?? Doing well? She is requesting discharge home.? Peripartum Data Procedures: Procedures Operation Date: 05/01/22 17:15 Actual Procedure Side Surgeon p Section Paris Hawkins MD complications: none Gender: Male Infant Discharge Plan: Home Status at Discharge Functional status at discharge: independent ambulation Overall status at discharge: patient is progressing back to baseline Time Spent with Patient Time attestation: Total time spent providing and/or coordinating discharge services: Discharge Plan Discharge Disposition: Home, Self-Care Date of Admission: 05/01/22 11:37 Primary Care Provider: Shanthi Davis Condition: Stable Anticipated Discharge Date/Time: 05/03/22 11:00 Discharge Medications: New ferrous sulfate 325 mg (65 mg iron) Tablet 325 mg PO DAILYWM Qty: 60 0RF docusate sodium 100 mg Capsule 100 mg PO DAILY PRNQty: 100 0RF Rx Instructions: Take 1-2 tablets daily as needed for constipation. ibuprofen 600 mg Tablet 600 mg PO Q6H PRN (Reason: Pain) Qty: 90 0RF oxycodone 5 mg Tablet 5 - 10 mg PO Q4H PRN (Reason: Pain) Qty: 14 0RF Continued prenat.vits,swathi,[id number]-novi-ppvjz Tablet 1 tab PO QDAY Discontinued aspirin 81 mg capsule 81 mg PO QDAY Hold Instructions: Doctor's Order docusate sodium [Colace] 100 mg capsule 100 mg PO QDAY Discharge Orders: Discharge Order (Routine); Ordered 05/03/22 Ordered By: Adelina Mejia Patient Education: OB Over the Counter Medication Information, OB /Breast Feeding Additional Instructions: Discharge instructions were reviewed with the patient including signs and symptoms of infection and home going medications.? Lifting Restrictions: 10 pounds for 6 weeks? ?? Do not drive while taking pain meds.? Off Work or School for 8 weeks.? ?? Symptoms to report to doctor:? -Bleeding that saturates more than one pad per hour? -Passing clots larger than the size of a golf ball? -Pain not relieved by prescribed medication? -Fever above 100.4 degrees Fahrenheit? -A foul vaginal odor? -Difficulty in emotions, mood and functions? -Thoughts of hurting yourself and/or ? -Painful, reddened area in your breast? -Any drainage, redness or tenderness in your IV/epidural site? -Severe headache that doesn't improve after taking medications? -Changes in vision, including temporary loss of vision, blurred vision, and/or light sensitivity? -Upper abdominal pain (usually under ribs on the right side)? -Decrease in urination or painful, frequent urinating? -Chest pain? -Shortness of breath? -Tenderness or pain with redness and/swelling in the calf(s) of your leg? ?? Follow Up in clinic in 2 and 6 weeks.? ?? consultation services are available to all mothers and babies for the first year after delivery.? To make an appointment, please call [phone].? Discharge Diet: Regular Follow Up Appointments: [facility] [Provider Group] Forms: Accountableth Info Instructions
[2022-05-03 08:23] VITALS: BP 121/81; PULSE 83; RESP 16; O2SAT 98
[2022-05-03] MEDS: FERROUS SULFATE 325 MG TABLET PO (08:29)
[2022-05-03] MEDS: DOCUSATE SODIUM 100 MG CAPSULE PO (08:29)
[2022-05-03] MEDS: OXYCODONE 5 MG TABLET PO (08:30)
== END 2022-05-03 13:37 | disposition home or self-care (01) | DRG 540 ==
LOC: OB 16:59 → OB CLI 05-04 07:54 → OB 05-04 07:55
PROVIDERS: Admitting Provider Obstetrics & Gynecology; PCP Obstetrics & Gynecology; Visit Provider Obstetrics & Gynecology
PROC: 10D00Z1 Extraction of Products of Conception, Low, Open Approach (ICD-10-PCS; CPT 59514; principal; 2022-05-01 17:00)
DX: O32.0XX0 Maternal care for unstable lie, not applicable or unspecified (principal); O76 Abnormality in fetal heart rate and rhythm complicating labor and delivery; O67.9 Intrapartum hemorrhage, unspecified; O90.81 Anemia of the puerperium; D62 Acute posthemorrhagic anemia; O34.83 Maternal care for other abnormalities of pelvic organs, third trimester; O34.13 Maternal care for benign tumor of corpus uteri, third trimester; D25.1 Intramural leiomyoma of uterus; N83.8 Other noninflammatory disorders of ovary, fallopian tube and broad ligament; Z3A.39 39 weeks gestation of pregnancy; Z37.0 Single live birth
CPT/HCPCS: 01967; 01968; 36415; 59412; 64488; 76942; 85018; 85025; 85384; 85610; 85730; 86850; 86870; 86880; 86900; 86901; 87635; 99140; 99211; 99213; A9270; C9290; J0690; J1885; J2274; J2370; J2590; J2795; J3010; J3105; J3490; J7120; S0020

== ENCOUNTER 2024-02-25 11:57 | Outpatient (CLI) | payer BC, SELFPAY ==
--- OUTSIDE RECORDS SUMMARY | 2024-02-25 12:03 | XMS_ITS | Clinical Summary ---
Author Organization [facility] Address [place], [place] [address] Care Team Providers Care Datawarehouse Developer Name Role Phone Pcp, No Primary Care Provider Unavailabl e Allergies Active Allergy Reactions Criticality Noted Date Comments Amoxicillin Hives 05/17/2014 Medications Medication Sig Dispensed Refills Start Date End Date Status Ltnalsvv-Tv-Kdu-Fe-F A tab tablet Active DOCUSATE SODIUM ORAL Acti ve ferrous sulfate (IRON ORAL) Take by mouth. Active pimecrolimus (ELIDEL) 1 % cream APPLY TOPICALLY TWO TIMES A DAY TO AFFECTED AREAS DIRECTED Active docusate (COLACE) 100 mg capsuleIndications:C hronic constipation Take 1 Capsule (100 mg) by mouth once daily. 100 Capsule 3 01/03/2024 Active Active Problems Problem Noted Date Diagnosed Date Eczema 01/03/2024 Varicose veins of right lower extremity with com plications 04/18/2023 Resolved Problems Problem Noted Date Diagnosed Date Resolved Date Normal delivery at term 01/15/201602/06 Encounter for supervision of normal first 09/13/2015 02/27/2016 Overview: G1 GBS negative Encounter for supervision of normal first in first trimester 06/16/2015 02/27/2016 Encounters Date Type Department Care Team Description 02/04/2024 9:30 AM CDT Office Visit [address] [phone] Dory Childs MD Consult (Neutropenia, unspecified type) 02/04/2024 Travel 01/28/2024 3:30 PM CDT Orders Only [facility] [address] [place] [address] Lab, [place] Lab 01/28/2024 Travel 01/20/[address] [facility] [address] [facility] [place] [phone] Selly, Kristen L, DATA ANALYTICS ANALYST <No scans attached> 01/14/[address] [facility] [address] [facility] [place] [phone] Selly, Kristen L, DATA ANALYTICS ANALYST <No scans attached> 01/13/[address] [facility] [address] [facility] [place] [address] Selllouis Kristen L, DATA ANALYTICS ANALYST Appointment 01/06/2024 Telephone [facility] [address] [place] [address] Mandy Muhammad MD Results 01/03/2024 11:10 AM CDT Office Visit [facility] [address] [place] [address] Mandy Muhammad MD Physical (38 yr); Weight (unintentional weight loss, smaller breasts/less of an appetite-several months); Hair/Scalp Problem (short hairs- ) 01/03/2024 Travel from Last 3 Months Immunizations Name Administration Dates Next Due Influenza, IIV4 05/02/2023,,05/09/2021,04/21/2020,03/2018,03/21/2016,06/16/2015 Influenza, IIV4 (=>6mos) MDV 06/04/2017,07/27/19 14 Tdap 02/23/2022,07/21/2020,11/04/2015 Family History Medical History Relation Name Comments Stroke Maternal Grandmother Allergies Sister Relation Name Status Comments Father Alive Maternal Grandfather Maternal Grandmother Mother Alive Paternal Grandfather Paternal Grandmother Alive Sister Alive Social History Tobacco Use Types Packs/Day Years Used Date Smoking Tobacco: Never Smokeless Tobacco: Never Tobacco Cessation:Counseling Given: Yes Alcohol Use Standard Drinks/Week Comments No 0 (1 standard drink = 0.6 oz pur e alcohol) PHQ-2 Answer Date Recorded PHQ-2 TOTAL SCORE 2 01/03/2024 Social Connections Answer Date Recorded Frequency of Communication with Friends and Fami ly 4 01/03/2024 Financial Resource Strain Answer Date R ecorded Difficulty of Paying Living Expenses 3 01/03/2024 Difficulty of Paying Living Expenses Not on file 01/03/2024 Food Insecurity Answer Date Recorded Worried About Running Out of Food in the Last Ye ar 1 01/03/2024 Transportation Needs Answer Date Record ed Lack of Transportation (Medical) 1 01/03/2024 Housing Stability Answer Date Recorded Unable to Pay for Housing in the Last Year 1 01/03/2024 Sex and Gender Information Value Date Recorded Sex Assigned at Not on file Gender Identity Not on file Sexual Orientation Not on file Obstetrics History Para Term AB IAB SAB Ectopic Multiple Livin g Live Births 1 1 1 0 0 0 0 0 0 1 1 Date Outcome GA Total Labor Labor/2nd/3rd Weight Sex Type Anes PTL Ariela A1 A5 Name Clin 016 Term 40w 4d 3.32 kg (7 lb 5 oz) F Vag None Livin g 7 8 SHERI ,BG ELSA Complications:None Delivery Location:[facility] Last Filed Vital Signs Vital Sign Reading Time Taken Comments Blood Pressure 103/64 02/04/2024 9:25 AM CDT Pulse 72 02/04/2024 9:25 AM CDT Temperature 36.6 ??C (97.8 ??F) 02/04/2024 9:25 AM CD T Respiratory Rate 14 02/04/2024 9:25 AM CDT Oxygen Saturation 100% 02/04/2024 9:25 AM CDT Inhaled Oxygen Concentration - - Weight 51.7 kg (114 lb) 02/04/2024 9:25 AM CDT Height 162 cm (5' 3.78) 01/03/2024 11:19 AM CDT Body Mass Index 19.7 01/03/2024 11:19 AM CDT Plan of Treatment Health Maintenance Due Date Last Done Comments Hepatitis C screening for age 18-79 11/29/2003 Influenza for age 9-49 03/08/2024 3, 04/18/2022, 05/09/2021, Additional history exists BMI (ht and wt on same day) for age 18+ 01/02/2025 01/03/2024, 02/17/2018, 02/27/2016, Additional history exists Depression screening for age 12+ 01/05/2025 01/06/2024, 01/03/2024, 04/11/2021 Pap test for age 21-65 03/04/2025 , 03/04/2020, 06/16/2015 Tetanus booster 02/24/2032 02/23/2022, 07/08, 11/04/2015 HIV for age 15-65 Completed 06/16/2015 Tdap Completed 02/23/2022, 07/08, 11/04/2015 COVID-19 vaccine series Completed 05/02/20 23, 06/19/2022, 06/15/2021, Additional history exists Pneumococcal series for age 6-64 Aged Out No longer eligible based on patient's age to complete this topic Procedures Procedure Name Priority Date/Time Associated Diagnosis Comments CBC WITH AUTO DIFFERENTIAL Routine 01/28/2024 3:43 PM CDT Neutropenia, unspecified type (HC) RETICULOCYTES Routine 01/28/2024 3:43 PM CDT Neutropenia, unspecified type (HC) CBC WITH AUTO DIFFERENTIAL Routine 01/28/2024 3:43 PM CDT Neutropenia, unspecified type (HC) PERIPHERAL BLD MORPHOLOGY Routine 01/28/2024 3:39 PM CDT Neutropenia, unspecified type (HC) CBC WITH AUTO DIFFERENTIAL Routine 01/03/2024 12:18 PM CDT Weight loss, unintentional TSH WITH REFLEX Routine 01/03/2024 12:18 PM CDT Weight loss, unintentional CBC WITH AUTO DIFFERENTIAL Routine 01/03/2024 12:18 PM CDT Weight loss, unintentional COMP METABOLIC PANEL Routine 01/03/2024 12:18 PM CDT Weight loss, unintentional GRADE TEACHER THIN PREP PAP SCREEN IMAGED Routine 03/04/2020 1:40 PM CDT ANTI HIV 1/2 Routine 06/16/2015 4:15 PM HEALTH CARE ADMINISTRATOR , first, first trimester from Last 3 Months or Most Recently Relevant to Health Maintenance Results * CBC WITH AUTO DIFFERENTIAL (01/28/2024 3:43 PM CDT) Only the most recent of2 resultswithin the time period is included. WHITE BLOOD COUNT 4.9 4.5 - 11.0 thou/cu mm 01/28/2024 3:48 PM CDT [facility] RED BLOOD COUNT 4.57 4.00 - 5.20 mil/cu mm 01/28/2024 3:48 PM CDT [facility] HEMOGLOBIN 13.9 12.0 - 16.0 g/dL 01/28/2024 3:48 PM CDT [facility] HEMATOCRIT 40.6 33.0 - 51.0 % 01/28/2024 3:48 PM CDT [facility] MCV 89 80 - 100 fL 01/28/2024 3:48 PM CDT [facility] MCH 30.4 26.0 - 34.0 pg 01/28/2024 3:48 PM CDT [facility] MCHC 34.2 32.0 - 36.0 g/dL 01/28/2024 3:48 PM CDT [facility] RDW 12.8 11.5 - 15.5 % 01/28/2024 3:48 PM CDT [facility] PLATELET COUNT 160 140 - 440 thou/cu mm 01/28/2024 3:48 PM CDT [facility] MPV 10.3 6.5 - 11.0 fL 01/28/2024 3:48 PM CDT [facility] % NEUT 55.3 % 01/28/2024 3:48 PM CDT [facility] % LYMPH 38.0 % 01/28/2024 3:48 PM CDT [facility] % MONO 5.9 % 01/28/2024 3:48 PM CDT [facility] % EOS 0.6 % 01/28/2024 3:48 PM CDT [facility] % BASO 0.2 % 01/28/2024 3:48 PM CDT [facility] ABSOLUTE NEUTROPHILS 2.7 1.7 - 7.0 thou/cu mm 01/28/2024 3:48 PM CDT [facility] ABSOLUTE LYMPHOCYTES 1.9 0.9 - 2.9 thou/cu mm 01/28/2024 3:48 PM CDT [facility] ABSOLUTE MONOCYTES 0.3 <0.9 thou/cu mm 01/28/2024 3:48 PM CDT [facility] ABSOLUTE EOSINOPHILS 0.0 <0.5 thou/cu mm 01/28/2024 3:48 PM CDT [facility] ABSOLUTE BASOPHILS 0.0 <0.3 thou/cu mm 01/28/2024 3:48 PM CDT [facility] Blood BLOOD SPECIMEN / Unknown Venipuncture / Unknown 01/28/2024 3:43 PM CDT 01/28/2024 3:43 PM CDT Narrative [facility] - 01/28/2024 3:48 PM CDT This procedure was originally ordered at [facility]. Kristen Hackett [place] [address], * RETICULOCYTES (01/28/2024 3:43 PM CDT) RETIC% 1.2 0.5 - 1.5 % 01/28/2024 10:36 PM CDT [facility] RETIC (ABSOLUTE) 0.05 0.03 - 0.08 mil/cu mm 01/28/2024 10:36 PM CDT [facility] Blood BLOOD SPECIMEN / Unknown Venipuncture / Unknown 01/28/2024 3:43 PM CDT 01/28/2024 3:43 PM CDT Narrative [facility] - 01/28/2024 10:36 PM CDT This procedure was originally ordered at [facility]. Kristen Hacktet NP HEMATOLOGY [facility] [address] [place] [address], * PERIPHERAL BLD MORPHOLOGY (01/28/2024 3:39 PM CDT) Case Report Special Hematology Report ? Case: [id number] ? Authorizing Provider: ??Kristen Hackett, SAMUEL ? Collected: ? 01/28/2024 1539 ? Ordering Location: ? [facility] ? Received: ?01/28/2024 1542 ? [facility] ? Pathologist: ? Hernando Zambrano, ? MD ? Specimen: ?Blood ? 01/29/2024 8:56 AM CDT [facility] Final Diagnosis PERIPHERAL BLOOD: No diagnostic abnormalities 01/29/2024 8:56 AM T [facility] Comment This case was also reviewed by Helen Jones MT, MS ([facility]). 01/29/2024 8:56 AM CDT [facility] Clinical Information The patient is a 38-year-old female. Pertinent clinical information: Neutropenia. 01/29/2024 8:56 AM CDT [facility] CBC and Differential HEMATOLOGY PARAMETERS Tested at: ??[facility] ? RESULTS ??EXPECTED VALUES WBC: ? 4.9 ?4.5-01c1215/cu mm ? RBC: ? 4.57 ? 4.00-5.20 mil/cumm HGB: ? 13.9 ? 12-16 gm/dl ? HCT: ? 40.6 ? 33-51% ? MCV: ? 89.0 ? 80-100 fl ? NORMOCYTIC MCH: ? 30.4 ? 26-34 pg ? MCHC: ?34.2 ? 32-36 gm/dl ? NORMOCHROMIC RDW: ? 12.8 ? 11.5-15.5% ? PLT: ? 160 ?140-860c6175/u L ? MPV: ? 10.3 ? 6.5-11 fl ? Retic: ?? 1.2 ?0.5-1.5% ? Differential ?Absolute (%) ?Expected (%) ?(x10*9/L) ? (x10*9/L) Neutrophils: ?2.7 (55.1) ?1.7-7.0 (42-72%) ? Lymphocytes: ?1.9 (38.8) ?0.9-2.9 (20-44%) ?? Monocytes: ?0.3 (6.1) ?<0.9 (0-11%) ? 01/29/2024 8:56 AM T [facility] Microscopic Description The final diagnosis is based on microscopic examination of an appropriately stained blood smear. 01/29/2024 8:56 AM T [facility] Additional Information Interpreted at [facility] - [address] [facility] [address], [place] [address] 01/29/2024 8:56 AM T [facility] Blood BLOOD SPECIMEN / Unknown 01/28/2024 3:39 PM CDT 01/28/2024 3:42 PM CDT Comment:CURRENT MEDICATIONSC urrent Outpatient Medications: ? ? docusate (COLACE) 100 mg capsule, Take 1 Capsule (100 mg) by mouth once daily., Disp: 100 Capsule, Rfl: 3? ? DOCUSATE SODIUM ORAL, , Disp: , Rfl: ? ? ferrous sulfate (IRON ORAL), Take by mouth., Disp: , Rfl: ? ? pimecrolimus (ELIDEL) 1 % cream, APPLY TOPICALLY TWO TIMES A DAY TO AFFECTED AREAS DIRECTED, Disp: , Rfl: ? ? Yipewsij-Ye-Xnx-Fe-FA tab tablet, , Disp: , Rfl: This procedure was originally ordered at [facility]. Kristen Hackett NP HEMATOLOGY Performing Organization Address [facility] Co de Phone Number [facility] [address] [place] [address], * TSH WITH REFLEX (01/03/2024 12:18 PM CDT) TSH 2.73 0.27 - 4.20 uIU/mL 01/04/2024 5:13 AM CDT [facility] Blood BLOOD SPECIMEN / Unknown Venipuncture / Unknown 01/03/2024 12:18 PM CDT 01/03/2024 12:18 PM CDT Narrative [facility] - 01/04/2024 5:13 AM CDT In Adults, TSH values between 5.00 and 10.00 uIU/ml do not necessarily indicate the presence of Hypothyroidism. Correlation with clinical findings such as presence of goiter and/or Thyroperoxidase (TPO) Antibody may be helpful. For more information please refer to ZIA 2004; 291: 228-238. Mandy Muhammad MD CHEMISTRY Performing Organization Address [facility]/ZIP Co de Phone Number [facility] [address] [place] [address], * COMP METABOLIC PANEL (01/03/2024 12:18 PM CDT) SODIUM 140 136 - 145 mmol/L 01/04/2024 5:13 AM CDT [facility] POTASSIUM 4.2 3.5 - 5.1 mmol/L 01/04/2024 5:13 AM [facility] CHLORIDE 103 98 - 107 mmol/L 01/04/2024 5:13 AM [facility] CO2,TOTAL 28 22 - 29 mmol/L 01/04/2024 5:13 AM [facility] ANION GAP 9 5 - 18 01/04/2024 5:13 AM [facility] GLUCOSE 86 70 - 99 mg/dL 01/04/2024 5:13 AM [facility] CALCIUM 9.2 8.6 - 10.0 mg/dL 01/04/2024 5:13 AM [facility] BUN 8 6 - 20 mg/dL 01/04/2024 5:13 AM [facility] CREATININE 0.75 0.50 - 0.90 mg/dL 01/04/2024 5:13 AM [facility] BUN/CREAT RATIO 11 10 - 20 5:13 AM [facility] eGFR >90 >90 mL/min/1.7 3m2 01/04/2024 5:13 AM [facility] Comment:As of 2021, eG FR is calculated by the CKD-EPI creatinine equation without race adjustment. ??eGFR can be influenced by muscle mass, exercise, and diet. ??The reported eGFR is an estimation only and is only applicable if the renal function is stable. ALBUMIN 4.4 4.0 - 4.9 g/dL 01/04/2024 5:13 AM [facility] PROTEIN,TOTAL 6.9 6.0 - 8.0 g/dL 01/04/2024 5:13 AM [facility] BILIRUBIN,TOTAL 0.3 0.0 - 1.2 mg/dL 01/04/2024 5:13 AM [facility] ALK PHOSPHATASE 40 35 - 104 IU/L 01/04/2024 5:13 AM [facility] ALT (SGPT) 22 10 - 35 IU/L 01/04/2024 5:13 AM CDT [facility] AST (SGOT) 22 10 - 35 IU/L 01/04/2024 5:13 AM CDT [facility] Blood BLOOD SPECIMEN / Unknown Venipuncture / Unknown 01/03/2024 12:18 PM CDT 01/03/2024 12:18 PM CDT Mandy Muhammad MD CHEMISTRY [facility] [address] [place] [address], * GRADE TEACHER THIN PREP PAP SCREEN IMAGED (03/04/2020 1:40 PM CDT) Case Report Gynecologic Cytology Report ? Case: [id number] ? Authorizing Provider: ??Jenny Ferrera MD ?Collected: ? 03/04/2020 1340 ? Ordering Location: ? [facility] ?Received: ?03/08/2020 1809 ? First Screen: ?Fany Aleman ? Specimen: ?GRADE TEACHER ThinPrep Vial Screening, Cervical/Vaginal ? 03/18/2020 8:37 AM CDT [facility] INTERPRETATION/ RESULT NEGATIVE FOR INTRAEPITHELIAL LESION OR MALIGNANCY (NIL) (none) 03/18/2020 8:37 AM T [facility] IMEN ADEQUACY Satisfactory for evaluation Endocervical component present 03/18/2020 8:37 AM T [facility] HPV REQUEST HPV and PAP 03/18/2020 8:37 AM CDT [facility] Menstrual Status 03/18/2020 8:[address] [facility] Additional Information 03/18/2020 8:[address] [facility] Comment: Interpreted at [facility] - [address], [place] [address] Automated Review Successful 03/18/2020 8:37 AM [facility] Comment:Specimen processed s uccessfully by automated gin pole operator device, ThinPrep Imaging System, [employer] ANCILLARY TESTING GRADE TEACHER HPV Ordered, Please see separate report 03/18/2020 8:[address] [facility] Note The pap test is a screening technique, not a diagnostic procedure. It is used primarily to screen for squamous cancers and precursor lesions. Published studies have shown that it is subject to both false negative and false positive results. The pap test should not be used as the sole means to diagnose or exclude pre-malignant and malignant lesions. 03/18/2020 8:37 AM T [facility] Other (Cervical/Vagina l) 03/04/2020 1:40 PM CDT 03/08/2020 6:09 PM CDT Jenny Ferrera MD PATHOLOGY/CYTOLOGY [facility] [address] [place] [address], [place] * ANTI HIV 1/2 (06/16/2015 4:15 PM HEALTH CARE ADMINISTRATOR) HIV-1/HIV-2 ANTIBODY Non-Reacti ve Non-Reacti ve 06/16/2015 10:43 PM HEALTH CARE ADMINISTRATOR [facility] Blood specimen (specimen) BLOOD SPECIMEN / Unknown Venipuncture / Unknown 06/16/2015 4:15 PM HEALTH CARE ADMINISTRATOR 06/16/2015 4:15 PM HEALTH CARE ADMINISTRATOR Narrative [facility] - 06/16/2015 10:43 PM HEALTH CARE ADMINISTRATOR HIV-1 p24 and HIV-1/HIV-2 Ab not detected Jolene Torres MD SEND OUTS [facility] [address] [place] [address], from Last 3 Months or Most Recently Relevant to Health Maintenance Advance Directives * Full Code (Latest Code Status on File) Date Activated Date Inactivated Comments 01/15/2016 3:06 PM 01/17/2016 12:23 AM * Full Code Date Activated Date Inactivated Comments 01/15/2016 12:28 PM 01/15/2016 3:06 PM * Full Code Date Activated Date Inactivated Comments 01/15/2016 11:49 AM 01/15/2016 12:28 PM Care Teams Datawarehouse Developer Relationship Specialty Start Date End Date Pcp, No . PCP - General 05/25/21
--- OUTSIDE RECORDS SUMMARY | 2024-02-25 12:03 | XMS_ITS | Clinical Summary ---
Author Organization [facility] Address [address] [place] [address] Care Team Providers Care Production Potter Name Role Phone No Primary/Referring, Phy Primary Care Provider Unavailable Source Comments You are receiving this document as you are listed as the primary care provider,follow-up provider, or the patient has been referred to you for consultation.This is in compliance with the Medicare and[facility] EHR Incentive Program,which states Providers who transition their patient to another setting of careor provider of care or refers their patient to another provider of care shouldprovide summary care record for each transition of care or referral. [facility] Allergies Active Allergy Reactions Criticality Noted Date Comments Amoxicillin Hives High 06/26/2013 Medications Medication Sig Dispensed Refills Start Date End Date Status Ksjridvf-Lfg-Ad-FA (PRE- OR) Active DOCUSATE SODIUM OR Active erythromycin (ERYGEL) 2 % gel Apply topically two times a day. To face 30 g 1 07/19/2023 Active pimecrolimus (ELIDEL) 1 % creamIndications:Derm atitis Apply topically two times a day. to affected areas as directed 30 g 08/02/2023 Active Active Problems Problem Noted Date Diagnosed Date Varicose veins of right lower extremity with com plications 04/18/2023 Screening for malignant neoplasm of cervix 07/09 Overview (04/07/2015): 12-13 Normal pap Next pap due in 3 years Epic Eczema Immunizations Name Administration Dates Next Due Influenza IIV4 (Quadrivalent) 0.5mL (43483) 07/09 Family History Medical History Relation Name Comments Hypertension Father Other Father PE Thromboembolic Disease Mother hx of blood clots, etiology? Relation Name Status Comments Father Mother Social History Tobacco Use Types Packs/Day Years Used Date Smoking Tobacco: Never Smokeless Tobacco: Never Tobacco Cessation:Counseling Given: Not Answered Alcohol Use Standard Drinks/Week Comments Yes 0 (1 standard drink = 0.6 oz pur e alcohol) 1-2 drinks a week Sex and Gender Information Value Date Recorded Sex Assigned at Not on file Gender Identity Not on file Sexual Orientation Not on file Last Filed Vital Signs Vital Sign Reading Time Taken Comments Blood Pressure 114/66 07/22/2023 2:17 PM AGRICULTURAL TECHNICAL OFFICER Pulse 75 07/22/2023 2:17 PM AGRICULTURAL TECHNICAL OFFICER Temperature 36.2 ??C (97.2 ??F) 07/22/2023 1:07 PM CS T Respiratory Rate 16 07/22/2023 2:17 PM AGRICULTURAL TECHNICAL OFFICER Oxygen Saturation 100% 07/22/2023 2:17 PM AGRICULTURAL TECHNICAL OFFICER Inhaled Oxygen Concentration - - Weight 51.7 kg (114 lb) 07/12/2023 10:05 AM AGRICULTURAL TECHNICAL OFFICER Height 160.8 cm (5' 3.31) 07/12/2023 10:[address] Body Mass Index 20 07/12/2023 10:05 AM AGRICULTURAL TECHNICAL OFFICER Plan of Treatment Health Maintenance Due Date Last Done Comments Hep C Screening (Preventive Services) 1985 MTM Covered 1985 HIV Screening (Preventive Services) 2001 HepB (1) 2004 Cervical Cancer Screening Due 06/27/2013 06/26/2013 Adult Preventive Visit 06/26/2015 06/26/2013 Influenza (#1) 2024 05/02/2023, 04/07, 05/09/2021, Additional history exists DTaP/Tdap/Td (4 - Tdap) 02/24/2032 02/24/20, 07/21/2020, 11/04/2015 Zoster/Shingles (1 of 2) 11/29/2035 COVID-19 Vaccine Completed 05/02/2023, , 06/15/2021, Additional history exists HPV Vaccine Aged Out No longer eligi ble based on patient's age to complete this topic HepA Aged Out No longer eligi ble based on patient's age to complete this topic Hib Aged Out No longer eligi ble based on patient's age to complete this topic IPV (Polio) Aged Out No longer eligi ble based on patient's age to complete this topic MCV4 Aged Out No longer eligi ble based on patient's age to complete this topic Pneumococcal Aged Out No longer eligi ble based on patient's age to complete this topic Procedures Procedure Name Priority Date/Time Associated Diagnosis Comments PAP TEST, ROUTINE Routine 06/26/2013 4:5 2 PM AGRICULTURAL TECHNICAL OFFICER Screening For Malignant Neoplasm Of The Cervix from Last 3 Months or Most Recently Relevant to Health Maintenance Results * PAP TEST, ROUTINE (06/26/2013 4:52 PM AGRICULTURAL TECHNICAL OFFICER) Cytology (NOTE) Automatic Teller Machine Servicer Cytology Report Patient Name: ELSA WADE Taken: 06/26/2013 Received: 07/02/2013 Reported: 07/07/2013 Physician(s): Aisha Nesbitt ?Source of Specimen Pap Test, Routine Cervical/Endocervi swathi: ?Specimen Adequacy ?Satisfactory for evaluation. ??Endocervical component present. ? Final Cytologic Interpretation/Res ult NEGATIVE FOR INTRAEPITHELIAL LESION OR MALIGNANCY (NILM) ?? Electronically Signed Out By GRACE Earl (ASCP) GRACE Earl (ASCP) ? Pap Smear History Date of Last Menstrual Period: 06/12/2013 ?? Microscopic Description Microscopic examination is performed. [facility] Department of Pathology [address] [place] [address] ??[id number] [facility] 06/26/2013 4:52 PM AGRICULTURAL TECHNICAL OFFICER 07/02/2013 7:59 AM AGRICULTURAL TECHNICAL OFFICER Aisha Nesbitt MD LAB_1 [facility] [phone] from Last 3 Months or Most Recently Relevant to Health Maintenance Advance Directives * Full Code (Latest Code Status on File) Date Activated Date Inactivated Comments 07/22/2023 11:52 AM 07/22/2023 5:00 PM Care Teams Production Potter Relationship Specialty Start Date End Date No Primary/Referring, Jose Juan PCP - General 06/25/13
[2024-02-25 17:59] LABS: Chlamydia DNA Amplified* NOT DETECTED (No Detected); GC DNA Amplified* NOT DETECTED (No Detected)
== END 2024-02-25 11:58 | disposition home or self-care (01) ==
PROVIDERS: Visit Provider Physician Assistant
DX: Z34.91 Encounter for supervision of normal pregnancy, unspecified, first trimester (principal); Z3A.08 8 weeks gestation of pregnancy
CPT/HCPCS: 76817; 86592; 86703; 86704; 86706; 86762; 86787; 86803; 86850; 86900; 86901; 87086; 87340; 87491; 87591

== ENCOUNTER 2024-04-23 08:05 | Outpatient (CLI) | payer BC, SELFPAY ==
--- OUTSIDE RECORDS SUMMARY | 2024-04-23 09:32 | XMS_ITS | Clinical Summary ---
Author Organization [facility] Address [place], [place] [address] Care Team Providers Care Supervisor Vegetable Farming Name Role Phone Pcp, No Primary Care Provider Unavailabl e Allergies Active Allergy Reactions Criticality Noted Date Comments Amoxicillin Hives 05/17/2014 Medications Medication Sig Dispensed Refills Start Date End Date Status Pfsolrlz-Gj-Qgs-Fe-F A tab tablet Active DOCUSATE SODIUM ORAL [...] for supervision of normal first 09/13/2015 02/27/2016 Overview (12/20/2015): G1 GBS negative Encounter for supervision of normal first in first trimester 06/16/2015 02/27/2016 Encounters Date Type Department Care Team Description 02/04/2024 9:30 AM CDT Office Visit [address] [id number] Dory Childs MD Consult (Neutropenia, unspecified type) 02/04/2024 Travel 01/28/2024 3:30 PM CDT Orders Only [facility] [address] [place] [address] Lab, [place] [facility] 01/28/2024 Travel from Last 3 Months Immunizations Name [...] 7 8 SHERI ,BG ELSA Complications:None Delivery Location:[facility] Last Filed Vital Signs Vital [...] Hepatitis C screening for age 18-79 11/29/2003 COVID-19 vaccine series ( season) 2024 05/02/2023, 06/19/2022, 06/15/2021, Additional history exists Influenza for age 9-49 03/08/2024 , 04/18/2022, 05/09/2021, Additional history exists BMI (ht and wt on same day) for age 18+ 01/02/2025 01/03/2024, 02/17/2018, 02/27/2016, Additional history exists Depression screening for age 12+ 01/05/2025 01/06/2024, 01/03/2024, 04/11/2021 Pap test for age 21-65 03/04/2025 0, 03/04/2020, 06/16/2015 Tetanus booster 02/24/2032 02/23/2022, 07/08, 11/04/2015 HIV for age 15-65 Completed 06/16/2015 Tdap Completed 02/23/2022, 07/08, 11/04/2015 Pneumococcal series for age 6-64 Aged Out [...] 3:39 PM CDT Neutropenia, unspecified type (HC) CARE GIVER THIN PREP PAP SCREEN IMAGED Routine 03/04/2020 1:40 PM CDT ANTI HIV 1/2 Routine 06/16/2015 4:15 PM BREAKING MACHINE OPERATOR , first, first trimester from Last 3 Months or Most Recently Relevant to Health Maintenance Results * CBC WITH AUTO DIFFERENTIAL (01/28/2024 3:43 PM CDT) WHITE BLOOD COUNT 4.9 4.5 - 11.0 thou/cu mm 01/28/2024 3:48 PM CDT [facility] RED BLOOD COUNT 4.57 4.00 - 5.20 mil/cu mm 01/28/2024 3:48 PM CDT [facility] HEMOGLOBIN 13.9 12.0 - 16.0 g/dL 01/28/2024 3:48 PM CDT [facility] HEMATOCRIT 40.6 33.0 - 51.0 % 01/28/2024 3:48 PM CDT [facility] MCV 89 80 - 100 fL 01/28/2024 3:48 PM CDT [facility] MCH 30.4 26.0 - 34.0 pg 01/28/2024 3:48 PM CDT [facility] MCHC 34.2 32.0 - 36.0 g/dL 01/28/2024 3:48 PM CDT [facility] RDW 12.8 11.5 - 15.5 % 01/28/2024 3:48 PM CDT [facility] PLATELET COUNT 160 140 - 440 thou/cu mm 01/28/2024 3:48 PM CDT [facility] MPV 10.3 6.5 - 11.0 fL 01/28/2024 3:48 PM CDT [facility] % NEUT 55.3 % 01/28/2024 3:48 PM CDT [facility] % LYMPH 38.0 % 01/28/2024 3:48 PM CDT [facility] % MONO 5.9 % 01/28/2024 3:48 PM CDT [facility] % EOS 0.6 % 01/28/2024 3:48 PM CDT [facility] % BASO 0.2 % 01/28/2024 3:48 PM CDT [facility] ABSOLUTE NEUTROPHILS 2.7 1.7 - 7.0 thou/cu mm 01/28/2024 3:48 PM CDT [facility] ABSOLUTE LYMPHOCYTES 1.9 0.9 - 2.9 thou/cu mm 01/28/2024 3:48 PM CDT [facility] ABSOLUTE MONOCYTES 0.3 <0.9 thou/cu mm 01/28/2024 3:48 PM CDT [facility] ABSOLUTE EOSINOPHILS 0.0 <0.5 thou/cu mm 01/28/2024 3:48 PM CDT [facility] ABSOLUTE BASOPHILS 0.0 <0.3 thou/cu mm 01/28/2024 3:48 PM CDT [facility] Blood BLOOD SPECIMEN / Unknown Venipuncture / Unknown 01/28/2024 3:43 PM CDT 01/28/2024 3:43 PM CDT Narrative [facility] - 01/28/2024 3:48 PM CDT This procedure was originally ordered at [facility]. Kristen Hackett NP HEMATOLOGY [facility] [address] [place] [address], * RETICULOCYTES (01/28/2024 3:43 PM CDT) RETIC% 1.2 0.5 - 1.5 % 01/28/2024 10:36 PM CDT [facility] RETIC (ABSOLUTE) 0.05 0.03 - 0.08 mil/cu mm 01/28/2024 10:36 PM CDT [facility] Blood BLOOD SPECIMEN / Unknown Venipuncture / Unknown 01/28/2024 3:43 PM CDT 01/28/2024 3:43 PM CDT Narrative [facility] - 01/28/2024 10:36 PM CDT This procedure was originally ordered at [facility]. Kristen Hackett NP HEMATOLOGY [facility] [address] [place] [address], * PERIPHERAL BLD MORPHOLOGY (01/28/2024 3:39 PM CDT) Case Report Special Hematology Report ? Case: [id number] ? Authorizing Provider: ??Kristen Hackett NP ? Collected: ? 01/28/2024 1539 ? Ordering Location: ? [facility] ? Received: ?01/28/2024 1542 ? [facility] ? Pathologist: ? Hernando Zambrano, ? MD ? Specimen: ?Blood ? 01/29/2024 8:56 AM CDT [facility] Final Diagnosis PERIPHERAL BLOOD: No diagnostic abnormalities 01/29/2024 8:56 AM CDT [facility] Comment This case was also reviewed by Helen Jones MT, MS ([facility]). 01/29/2024 8:56 AM CDT [facility] Clinical Information The patient is a 38-year-old female. Pertinent clinical information: Neutropenia. 01/29/2024 8:56 AM CDT [facility] CBC and Differential HEMATOLOGY PARAMETERS Tested at: ??[facility] ? RESULTS ??EXPECTED VALUES WBC: ? 4.9 ?4.5-97l8368/cu mm ? RBC: ? 4.57 ? 4.00-5.20 mil/cumm HGB: ? 13.9 ? 12-16 gm/dl ? HCT: ? 40.6 ? 33-51% ? MCV: ? 89.0 ? 80-100 fl ? NORMOCYTIC MCH: ? 30.4 ? 26-34 pg ? MCHC: ?34.2 ? 32-36 gm/dl ? NORMOCHROMIC RDW: ? 12.8 ? 11.5-15.5% ? PLT: ? 160 ?140-483b3344/u L ? MPV: ? 10.3 ? 6.5-11 fl ? Retic: ?? 1.2 ?0.5-1.5% ? Differential ?Absolute (%) ?Expected (%) ?(x10*9/L) ? (x10*9/L) Neutrophils: ?2.7 (55.1) ?1.7-7.0 (42-72%) ? Lymphocytes: ?1.9 (38.8) ?0.9-2.9 (20-44%) ?? Monocytes: ?0.3 (6.1) ?<0.9 (0-11%) ? 01/29/2024 8:56 AM [facility] Microscopic Description The final diagnosis is based on microscopic examination of an appropriately stained blood smear. 01/29/2024 8:56 AM [facility] Additional Information Interpreted at [facility] - [address], [place] [address] 01/29/2024 8:56 AM CDT [facility] Blood BLOOD SPECIMEN / Unknown 01/28/2024 [...] AREAS DIRECTED, Disp: , Rfl: ? ? Snakyvgy-Za-Zcp-Fe-FA tab tablet, , Disp: , Rfl: This procedure was originally ordered at [facility]. Kristen Hackett NP HEMATOLOGY [facility] [address] [place] [address], * CARE GIVER THIN PREP PAP SCREEN IMAGED (03/04/2020 1:40 PM CDT) Case Report Gynecologic Cytology Report ? Case: [id number] ? Authorizing Provider: ??Jenny Ferrera MD ?Collected: ? 03/04/2020 1340 ? Ordering Location: ? [facility] ?Received: ?03/08/2020 1809 ? First Screen: ?Aleman, Fany ? Specimen: ?CARE GIVER ThinPrep Vial Screening, Cervical/Vaginal ? 03/18/2020 8:37 AM [facility] INTERPRETATION/ RESULT NEGATIVE FOR INTRAEPITHELIAL LESION OR MALIGNANCY (NIL) (none) 03/18/2020 8:37 AM [facility] IMEN ADEQUACY Satisfactory for evaluation Endocervical component present 03/18/2020 8:37 AM [facility] HPV REQUEST HPV and PAP 03/18/2020 8:37 AM [facility] Menstrual Status 03/18/2020 8:37 AM [facility] Additional Information 03/18/2020 8:37 AM [facility] Comment: Interpreted at [facility] - [address], [place] [address] Automated Review Successful 03/18/2020 8:37 AM [facility] Comment:Specimen processed s uccessfully by automated kitchen and bath designer device, ThinPrep Imaging System, [employer] ANCILLARY TESTING CARE GIVER HPV Ordered, Please see separate report 03/18/2020 8:37 AM [facility] Note The pap test is a screening technique, not a diagnostic procedure. It is used primarily to screen for squamous cancers and precursor lesions. Published studies have shown that it is subject to both false negative and false positive results. The pap test should not be used as the sole means to diagnose or exclude pre-malignant and malignant lesions. 03/18/2020 8:37 AM [facility] Other (Cervical/Vagina l) 03/04/2020 1:40 PM CDT 03/08/2020 6:09 PM CDT Jenny Ferrera MD PATHOLOGY/CYTOLOGY [facility] [address] [place] [address], [place] * ANTI HIV 1/2 (06/16/2015 4:15 PM BREAKING MACHINE OPERATOR) HIV-1/HIV-2 ANTIBODY Non-Reacti ve Non-Reacti ve 06/16/2015 10:43 PM BREAKING MACHINE OPERATOR [facility] Blood specimen (specimen) BLOOD SPECIMEN / Unknown Venipuncture / Unknown 06/16/2015 4:15 PM BREAKING MACHINE OPERATOR 06/16/2015 4:15 PM BREAKING MACHINE OPERATOR Narrative [facility] - 06/16/2015 10:43 PM BREAKING MACHINE OPERATOR HIV-1 p24 and HIV-1/HIV-2 Ab not detected Jolene Torres MD SEND OUTS [facility] [address] [place] [address], [place] from Last 3 Months or Most Recently Relevant to Health Maintenance Advance Directives * Full Code (Latest Code Status on File) Date Activated Date Inactivated Comments 01/15/2016 3:06 PM 01/17/2016 12:23 AM * Full Code Date Activated Date Inactivated Comments 01/15/2016 12:28 PM 01/15/2016 3:06 PM * Full Code Date Activated Date Inactivated Comments 01/15/2016 11:49 AM 01/15/2016 12:28 PM Care Teams Supervisor Vegetable Farming Relationship Specialty Start Date End Date Pcp, No . PCP - General 05/25/21
--- OUTSIDE RECORDS SUMMARY | 2024-04-23 09:32 | XMS_ITS | Clinical Summary ---
Author Organization [facility] Address [address] [place] [address] Care Team Providers Care Elocution Teacher Name Role Phone No Primary/Referring, Phy Primary Care Provider Unavailable Source Comments You are receiving this document as you are listed as the primary care provider,follow-up provider, or the patient has been referred to you for consultation.This is in compliance with the Medicare and[facility] EHR Incentive Program,which states Providers who transition their patient to another setting of careor provider of care or refers their patient to another provider of care shouldprovide summary care record for each transition of care or referral. [facility] Allergies Active Allergy Reactions Criticality Noted Date Comments Amoxicillin Hives High 06/26/2013 Medications Medication Sig Dispensed Refills Start Date End Date Status Uoxuguov-Tht-Lm-FA (PRE-GRACE OR) Active DOCUSATE SODIUM OR Active erythromycin [...] Dates Next Due Influenza IIV4 (Quadrivalent) 0.5mL (91333) 07/09 Family History Medical History Relation Name [...] Comments Blood Pressure 114/66 07/22/2023 2:17 PM HOME ASSESSMENT NURSE Pulse 75 07/22/2023 2:17 PM HOME ASSESSMENT NURSE Temperature 36.2 ??C (97.2 ??F) 07/22/2023 1:07 PM CS T Respiratory Rate 16 07/22/2023 2:17 PM HOME ASSESSMENT NURSE Oxygen Saturation 100% 07/22/2023 2:17 PM HOME ASSESSMENT NURSE Inhaled Oxygen Concentration - - Weight 51.7 kg (114 lb) 07/12/2023 10:05 AM HOME ASSESSMENT NURSE Height 160.8 cm (5' 3.31) 07/12/2023 10:[address] Body Mass Index 20 07/12/2023 10:05 AM HOME ASSESSMENT NURSE Plan of Treatment Health Maintenance Due Date Last Done Comments Hep C Screening (Preventive Services) 1985 HIV Screening (Preventive Services) 2001 HepB (1) 2004 Cervical Cancer Screening Due 06/27/2013 06/26/2013 Adult Preventive Visit 06/26/2015 06/26/2013 COVID-19 Vaccine ( season) 2024 05/02/2023, 06/19/2022, 06/15/2021, Additional history exists Influenza (#1) 2024 05/02/2023, 04/07, 05/09/2021, Additional history exists DTaP/Tdap/Td (4 - Tdap) 02/24/2032 02/24/20, 07/21/2020, 11/04/2015 Zoster/Shingles (1 of 2) 11/29/2035 HPV Vaccine Aged Out No longer eligi ble based on patient's age to complete this topic HepA Aged Out No longer eligi ble based on patient's age to complete this topic Hib Aged Out No longer eligi ble based on patient's age to complete this topic IPV (Polio) Aged Out No longer eligi ble based on patient's age to complete this topic RSV Aged Out No longer eligi ble based on patient's age to complete this topic MCV4 Aged Out No longer eligi ble based on patient's age to complete this topic Pneumococcal Aged Out No longer eligi ble based on patient's age to complete this topic Procedures Procedure Name Priority Date/Time Associated Diagnosis Comments PAP TEST, ROUTINE Routine 06/26/2013 4:5 2 PM HOME ASSESSMENT NURSE Screening For Malignant Neoplasm Of The Cervix from Last 3 Months or Most Recently Relevant to Health Maintenance Results * PAP TEST, ROUTINE (06/26/2013 4:52 PM HOME ASSESSMENT NURSE) Cytology (NOTE) Procurement Director Cytology Report Patient Name: ELSA WADE Taken: [...] ?? Microscopic Description Microscopic examination is performed. [facility] Department of Pathology [address] [place] [address] ??[id number] [facility] 06/26/2013 4:52 PM HOME ASSESSMENT NURSE 07/02/2013 7:59 AM HOME ASSESSMENT NURSE Aisha Nesbitt MD LAB_1 [facility] [phone] from Last 3 Months or Most Recently Relevant to Health Maintenance Advance Directives * Full Code (Latest Code Status on File) Date Activated Date Inactivated Comments 07/22/2023 11:52 AM 07/22/2023 5:00 PM Care Teams Elocution Teacher Relationship Specialty Start Date End Date No Primary/Referring, Stevey PCP - General 06/25/13
== END 2024-04-23 08:06 | disposition home or self-care (01) ==
LOC: NFLDREF 09:26
PROVIDERS: Physician Assistant; Visit Provider Obstetrics & Gynecology
DX: R10.11 Right upper quadrant pain (principal)
CPT/HCPCS: 80076; 82565; 82570; 84156; 84450; 84460; 84520

== ENCOUNTER 2024-05-01 09:03 | Outpatient (CLI) | payer BC, SELFPAY ==
--- OUTSIDE RECORDS SUMMARY | 2024-05-01 09:05 | XMS_ITS | Clinical Summary ---
Author Organization [facility] Address [place], [place] [address] Care Team Providers Care Job Setter Honing Name Role Phone Pcp, No Primary Care Provider Unavailabl e Allergies Active Allergy Reactions Criticality Noted Date Comments Amoxicillin Hives 05/17/2014 Medications Medication Sig Dispensed Refills Start Date End Date Status Dzypsxhp-Cn-Puz-Fe-F A tab tablet Active DOCUSATE SODIUM ORAL [...] Description 02/04/2024 9:30 AM CDT Office Visit [address] [id number] Dory Childs MD Consult (Neutropenia, unspecified type) 02/04/2024 Travel from Last 3 Months Immunizations Name [...] file 01/03/2024 Food Insecurity Answer Date Recorded Do you worry your food will run out before you are able to buy more? 1 01/03/2024 Transportation Needs Answer Date Record ed Lack of Transportation (Medical) 1 01/03/2024 Housing Stability Answer Date Recorded What is your housing situation today? 1 01/03/2024 Sex and Gender Information Value [...] 7 8 SHERI ,BG ELSA Complications:None Delivery Location:[facility] Last Filed Vital Signs Vital Sign Reading [...] Procedure Name Priority Date/Time Associated Diagnosis Comments MECHANICAL SPREADER OPERATOR THIN PREP PAP SCREEN IMAGED Routine 03/04/2020 1:40 PM CDT ANTI HIV 1/2 Routine 06/16/2015 4:15 PM SOFTWARE IMPLEMENTATION PROJECT MANAGER , first, first trimester from Last 3 Months or Most Recently Relevant to Health Maintenance Results * MECHANICAL SPREADER OPERATOR THIN PREP PAP SCREEN IMAGED (03/04/2020 1:40 PM CDT) Case Report Gynecologic Cytology Report ? Case: [id number] ? Authorizing Provider: ??Jenny Ferrera MD ?Collected: ? 03/04/2020 1340 ? Ordering Location[facility] ? [facility] ?Received: ?03/08/2020 1809 ? First Screen: ?Fany Aleman ? Specimen: ?MECHANICAL SPREADER OPERATOR ThinPrep Vial Screening, Cervical/Vaginal ? 03/18/2020 8:37 AM CDT [facility] INTERPRETATION/ RESULT NEGATIVE FOR INTRAEPITHELIAL LESION OR MALIGNANCY (NIL) (none) 03/18/2020 8:37 AM CDT [facility] IMEN ADEQUACY Satisfactory for evaluation Endocervical component present 03/18/2020 8:37 AM CDT [facility] HPV REQUEST HPV and PAP 03/18/2020 8:37 AM CDT [facility] Menstrual Status 03/18/2020 8:37 AM CDT [facility] Additional Information 03/18/2020 8:37 AM CDT [facility] Comment: Interpreted at [facility] - [address], [place] [address] Automated Review Successful 03/18/2020 8:37 AM CDT [facility] Comment:Specimen processed s uccessfully by automated home performance consultant device, ThinPrep Imaging System, [employer] ANCILLARY TESTING MECHANICAL SPREADER OPERATOR HPV Ordered, Please see separate report 03/18/2020 8:37 AM CDT [facility] Note The pap test is a [...] and malignant lesions. 03/18/2020 8:37 AM T [facility] Other (Cervical/Vagina l) 03/04/2020 1:40 PM CDT 03/08/2020 6:09 PM CDT Jenny Ferrera MD PATHOLOGY/CYTOLOGY [facility] [address] [place] [address], * ANTI HIV 1/2 (06/16/2015 4:15 PM SOFTWARE IMPLEMENTATION PROJECT MANAGER) HIV-1/HIV-2 ANTIBODY Non-Reacti ve Non-Reacti ve 06/16/2015 10:43 PM SOFTWARE IMPLEMENTATION PROJECT MANAGER [facility] Blood specimen (specimen) BLOOD SPECIMEN / Unknown Venipuncture / Unknown 06/16/2015 4:15 PM SOFTWARE IMPLEMENTATION PROJECT MANAGER 06/16/2015 4:15 PM SOFTWARE IMPLEMENTATION PROJECT MANAGER Narrative [facility] - 06/16/2015 10:43 PM SOFTWARE IMPLEMENTATION PROJECT MANAGER HIV-1 p24 and HIV-1/HIV-2 Ab not detected Jolene Torres MD SEND OUTS [facility] [address] [place] [address], from Last 3 Months or Most Recently Relevant to Health Maintenance Advance Directives * Full Code (Latest Code Status on File) Date Activated Date Inactivated Comments 01/15/2016 3:06 PM 01/17/2016 12:23 AM * Full Code Date Activated Date Inactivated Comments 01/15/2016 12:28 PM 01/15/2016 3:06 PM * Full Code Date Activated Date Inactivated Comments 01/15/2016 11:49 AM 01/15/2016 12:28 PM Care Teams Job Setter Honing Relationship Specialty Start Date End Date Pcp, No . PCP - General 05/25/21
--- OUTSIDE RECORDS SUMMARY | 2024-05-01 09:05 | XMS_ITS | Clinical Summary ---
[facility] Address [address] [place] [address] Care Team Providers Care Body Coverer Name Role Phone No Primary/Referring, Phy Primary Care Provider Unavailable Source Comments You are receiving this document as you are listed as the primary care provider,follow-up provider, or the patient has been referred to you for consultation.This is in compliance with the Medicare and[facility] Cent[facility]aid EHR Incentive Program,which states Providers who transition their patient to another setting of careor provider of care or refers their patient to another provider of care shouldprovide summary care record for each transition of care or referral. [facility] All[facility] Active Allergy Reactions Criticality Noted Date Comments Amoxicillin Hives High 06/26/2013 Medications Medication Sig Dispensed Refills Start Date End Date Status Lyuqgnpi-Qjb-Yz-FA (PRE-GRACE OR) Active DOCUSATE SODIUM OR Active [...] Dates Next Due Influenza IIV4 (Quadrivalent) 0.5mL (81710) 07/09 Family History Medical History Relation Name [...] Comments Blood Pressure 114/66 07/22/2023 2:17 PM TUBE COVERER Pulse 75 07/22/2023 2:17 PM TUBE COVERER Temperature 36.2 ??C (97.2 ??F) 07/22/2023 1:07 PM CS T Respiratory Rate 16 07/22/2023 2:17 PM TUBE COVERER Oxygen Saturation 100% 07/22/2023 2:17 PM TUBE COVERER Inhaled Oxygen Concentration - - Weight 51.7 kg (114 lb) 07/12/2023 10:05 AM TUBE COVERER Height 160.8 cm (5' 3.31) 07/12/2023 10:[address] Body Mass Index 20 07/12/2023 10:05 AM TUBE COVERER Plan of Treatment Health Maintenance Due Date [...] TEST, ROUTINE Routine 06/26/2013 4:5 2 PM TUBE COVERER Screening For Malignant Neoplasm Of The Cervix from Last 3 Months or Most Recently Relevant to Health Maintenance Results * PAP TEST, ROUTINE (06/26/2013 4:52 PM TUBE COVERER) Cytology (NOTE) Tennis Desk Team Member Cytology Report Patient Name: ELSA WADE Taken: [...] ?? Microscopic Description Microscopic examination is performed. [facility] Department of Pathology [address] [place] [phone] [facility] 06/26/2013 4:52 PM TUBE COVERER 07/02/2013 7:59 AM TUBE COVERER Aisha Nesbitt MD LAB_1 [facility] [phone] from Last 3 Months or Most Recently Relevant to Health Maintenance Advance Directives * Full Code (Latest Code Status on File) Date Activated Date Inactivated Comments 07/22/2023 11:52 AM 07/22/2023 5:00 PM Care Teams Body Coverer Relationship Specialty Start Date End Date No Primary/Referring, Stevey PCP - General 06/25/13
--- NOTE | 2024-05-01 09:15 | CRLHL7_ITS ---
For Patients: As a result of the Century Cures Act, medical imaging exams and procedure reports are released immediately into your electronic medical record. You may view this report before your referring provider. If you have questions, please contact your health care provider. INDICATION: Right upper quadrant pain COMPARISON: none TECHNIQUE: Real time greer scale imaging and color Doppler analysis was performed of the right upper quadrant. FINDINGS: The patient`s liver is of normal size and has uniform echogenicity. There is a normal appearance of the hepatic IVC and proximal abdominal aorta. There is no evidence of ascites. The gallbladder is of normal size and there is no evidence of intraluminal stones or sludge. The gallbladder wall measures 1.8 mm in thickness. The common bile duct is of normal size and measures 1.8 mm in diameter at the level of the niall hepatis. The pancreas appears normal. There is no evidence of a stone or hydronephrosis within the right kidney. The right kidney measures 9.9 cm in length. IMPRESSION: Normal right upper quadrant ultrasound. Dictated by Aly Butterfield MD @ 05/01/2024 3:56:09 PM (Electronically Signed)
== END 2024-05-01 09:04 | disposition home or self-care (01) ==
LOC: US 09:03
PROVIDERS: Visit Provider Physician Assistant
DX: R10.11 Right upper quadrant pain (principal)
CPT/HCPCS: 76705

== ENCOUNTER 2024-05-13 11:07 | Outpatient (CLI) | payer BC, SELFPAY ==
--- OUTSIDE RECORDS SUMMARY | 2024-05-13 11:09 | XMS_ITS | Clinical Summary ---
Author Organization [facility] Address [address] [place] [address] Care Team Providers Care Bundle Collector Name Role Phone No Primary/Referring, Phy Primary Care Provider Unavailable Source Comments You are receiving this document as you are listed as the primary care provider,follow-up provider, or the patient has been referred to you for consultation.This is in compliance with the Medicare and[facility] Hospitalcaid EHR Incentive Program,which states Providers who transition their patient to another setting of careor provider of care or refers their patient to another provider of care shouldprovide summary care record for each transition of care or referral. [facility] Allergies Active Allergy Reactions Criticality Noted Date Comments Amoxicillin Hives High 06/26/2013 Medications Medication Sig Dispensed Refills Start Date End Date Status Utbjvbka-Tzb-Pz-FA (PRE-GRACE OR) Active DOCUSATE SODIUM OR Active [...] Dates Next Due Influenza IIV4 (Quadrivalent) 0.5mL (71996) 07/09 Family History Medical History Relation Name [...] Comments Blood Pressure 114/66 07/22/2023 2:17 PM DIGITAL COMMENTATOR Pulse 75 07/22/2023 2:17 PM DIGITAL COMMENTATOR Temperature 36.2 ??C (97.2 ??F) 07/22/2023 1:07 PM CS T Respiratory Rate 16 07/22/2023 2:17 PM DIGITAL COMMENTATOR Oxygen Saturation 100% 07/22/2023 2:17 PM DIGITAL COMMENTATOR Inhaled Oxygen Concentration - - Weight 51.7 kg (114 lb) 07/12/2023 10:05 AM DIGITAL COMMENTATOR Height 160.8 cm (5' 3.31) 07/12/2023 10:[address] Body Mass Index 20 07/12/2023 10:05 AM DIGITAL COMMENTATOR Plan of Treatment Health Maintenance Due Date [...] TEST, ROUTINE Routine 06/26/2013 4:5 2 PM DIGITAL COMMENTATOR Screening For Malignant Neoplasm Of The Cervix from Last 3 Months or Most Recently Relevant to Health Maintenance Results * PAP TEST, ROUTINE (06/26/2013 4:52 PM DIGITAL COMMENTATOR) Cytology (NOTE) Fiscal Assistant Cytology Report Patient Name: ELSA WADE Taken: [...] Microscopic examination is performed. [facility] Department of Pathology [address] [place] [phone] [facility] 06/26/2013 4:52 PM DIGITAL COMMENTATOR 07/02/2013 7:59 AM DIGITAL COMMENTATOR Aisha Nesbitt MD LAB_1 [facility] [phone] from Last 3 Months or Most Recently Relevant to Health Maintenance Advance Directives * Full Code (Latest Code Status on File) Date Activated Date Inactivated Comments 07/22/2023 11:52 AM 07/22/2023 5:00 PM Care Teams Bundle Collector Relationship Specialty Start Date End Date No Primary/Referring, Stevey PCP - General 06/25/13
--- OUTSIDE RECORDS SUMMARY | 2024-05-13 11:10 | XMS_ITS | Clinical Summary ---
Author Organization [facility] Address [address] Care Team Providers Care Farm Instructor Name Role Phone Pcp, No Primary Care Provider Unavailabl e Allergies Active Allergy Reactions Criticality Noted Date Comments Amoxicillin Hives 05/17/2014 Medications Medication Sig Dispensed Refills Start Date End Date Status Oxaksctb-Yu-Cfd-Fe-F A tab tablet Active DOCUSATE SODIUM ORAL [...] normal first in first trimester 06/16/2015 02/27/2016 Immunizations Name Administration Dates Next Due Influenza, [...] 2 01/03/2024 Social Connections Answer Date Recorded Do you often feel lonely or isolated from those around you? 4 01/03/2024 Financial Resource Strain Answer Date R ecorded Difficulty of Paying Living Expenses 3 01/03/2024 Difficulty of Paying Living Expenses Not on file 01/03/2024 Food Insecurity Answer Date Recorded Do you worry your food will run out before you are able to buy more? 1 01/03/2024 Transportation Needs Answer Date Record ed Does lack of transportation keep you from medica l appointments? 1 01/03/2024 Does lack of transportation keep you from work, meetings or getting things that you need? 1 01/03/2024 Housing Stability Answer Date Recorded [...] 7 8 SHERI ,BG ELSA Complications:None [facility] Last Filed Vital Signs Vital Sign [...] for age 18-79 11/29/2003 COVID-19 vaccine series (2023- season) 2024 05/02/2023, 06/19/2022, 06/15/2021, Additional history [...] Procedure Name Priority Date/Time Associated Diagnosis Comments SOFTWARE CONFIGURATION SPECIALIST THIN PREP PAP SCREEN IMAGED Routine 03/04/2020 1:40 PM CDT ANTI HIV 1/2 Routine 06/16/2015 4:15 PM EXTRACTING MACHINE OPERATOR , first, first trimester from Last 3 Months or Most Recently Relevant to Health Maintenance Results * SOFTWARE CONFIGURATION SPECIALIST THIN PREP PAP SCREEN IMAGED (03/04/2020 1:40 PM CDT) Case Report Gynecologic Cytology Report ? Case: [id number] ? Authorizing Provider: ??Jenny Ferrera MD ?Collected: ? 03/04/2020 1340 ? Ordering Location: ? [facility] ?Received: ?03/08/2020 1809 ? First Screen: ?Fany Aleman ? Specimen: ?SOFTWARE CONFIGURATION SPECIALIST ThinPrep Vial Screening, Cervical/Vaginal ? 03/18/2020 8:37 AM T [facility] INTERPRETATION/ RESULT NEGATIVE FOR INTRAEPITHELIAL LESION OR MALIGNANCY (NIL) (none) 03/18/2020 8:37 AM [facility] IMEN ADEQUACY Satisfactory for evaluation Endocervical component present 03/18/2020 8:37 AM [facility] HPV REQUEST HPV and PAP 03/18/2020 8:37 AM [facility] Menstrual Status 03/18/2020 8:37 AM [facility] Additional Information 03/18/2020 8:37 AM [facility] Comment: Interpreted at [facility] - [address], [place] [address] Automated Review Successful 03/18/2020 8:37 AM CDT [facility] Comment:Specimen processed s uccessfully by automated cast iron dipper device, ThinPrep Imaging System, [employer] ANCILLARY TESTING SOFTWARE CONFIGURATION SPECIALIST HPV Ordered, Please see separate report 03/18/2020 8:37 AM CDT [facility] Note The pap test is a screening technique, not a diagnostic procedure. It is used primarily to screen for squamous cancers and precursor lesions. Published studies have shown that it is subject to both false negative and false positive results. The pap test should not be used as the sole means to diagnose or exclude pre-malignant and malignant lesions. 03/18/2020 8:37 AM CDT [facility] Other (Cervical/Vagina l) 03/04/2020 1:40 PM CDT 03/08/2020 6:09 PM CDT Jenny Ferrera MD PATHOLOGY/CYTOLOGY Performing Organization Address City/[facility]/ZIP Co de Phone Number [facility] [address] [place] [address], [place] * ANTI HIV 1/2 (06/16/2015 4:15 PM EXTRACTING MACHINE OPERATOR) HIV-1/HIV-2 ANTIBODY Non-Reacti ve Non-Reacti ve 06/16/2015 10:43 PM EXTRACTING MACHINE OPERATOR [facility] Blood specimen (specimen) BLOOD SPECIMEN / Unknown Venipuncture / Unknown 06/16/2015 4:15 PM EXTRACTING MACHINE OPERATOR 06/16/2015 4:15 PM EXTRACTING MACHINE OPERATOR Narrative [facility] - 06/16/2015 10:43 PM EXTRACTING MACHINE OPERATOR HIV-1 p24 and HIV-1/HIV-2 Ab not detected Jolene Torres MD SEND OUTS [facility] [address] [place] [address], [place] from Last 3 Months or Most Recently Relevant to Health Maintenance Advance Directives * Full Code (Latest Code Status on File) Date Activated Date Inactivated Comments 01/15/2016 3:06 PM 01/17/2016 12:23 AM * Full Code Date Activated Date Inactivated Comments 01/15/2016 12:28 PM 01/15/2016 3:06 PM * Full Code Date Activated Date Inactivated Comments 01/15/2016 11:49 AM 01/15/2016 12:28 PM Care Teams Farm Instructor Relationship Specialty Start Date End Date Pcp, No . PCP - General 05/25/21
== END 2024-05-13 11:08 | disposition home or self-care (01) ==
LOC: US 11:08
PROVIDERS: Visit Provider Student in an Organized Health Care Education/Training Program
DX: O09.522 Supervision of elderly multigravida, second trimester (principal); Z3A.19 19 weeks gestation of pregnancy
CPT/HCPCS: 76811

== ENCOUNTER 2024-07-15 08:44 | Outpatient (CLI) | payer BC, SELFPAY | END 2024-07-15 08:45 | disposition home or self-care (01) | LOC: NFLDREF 07-22 02:47 | PROVIDERS: Visit Provider Advanced Practice Midwife | DX: O09.523 Supervision of elderly multigravida, third trimester (principal); Z3A.28 28 weeks gestation of pregnancy | CPT/HCPCS: 86592 ==

== ENCOUNTER 2024-08-28 10:22 | Outpatient (CLI) | payer BC, SELFPAY | END 2024-08-28 10:23 | disposition home or self-care (01) | LOC: NFLDREF 10:24 | PROVIDERS: Visit Provider Advanced Practice Midwife | DX: Z34.93 Encounter for supervision of normal pregnancy, unspecified, third trimester (principal); Z3A.34 34 weeks gestation of pregnancy | CPT/HCPCS: 82728 ==

== ENCOUNTER 2024-09-02 09:32 | Outpatient (RCR) | payer BC, SELFPAY ==
--- NOTE | 2024-09-01 10:28 | URNOTE ---
Addendum entered by Delores Renae RN 09/01/24 10:33: Date range 08/31/2024-12/06/2024 Original Note: Prior auth is not required for Infed ([id number]).
[2024-09-02 09:44] VITALS: BP 115/76; PULSE 81; RESP 16; TEMP 36.4; O2SAT 100
[2024-09-02] MEDS: IRON DEXTRAN COMPLEX 25 MG in 0.9 % SODIUM CHLORIDE 100 ml 100 ML 402 MG IVPB (10:37)
[2024-09-02 10:55] VITALS: BP 111/76; PULSE 71; RESP 16; O2SAT 100
[2024-09-02] MEDS: IRON DEXTRAN COMPLEX 975 MG in 0.9 % SODIUM CHLORIDE 250 ml 250 ML 270 MG IVPB (12:07)
[2024-09-02 13:25] VITALS: BP 104/65; PULSE 74; RESP 16; O2SAT 97
== END 2025-03-01 23:59 | disposition home or self-care (01) ==
LOC: CCIC 09:32
PROVIDERS: Visit Provider Clinical Nurse Specialist
DX: O99.013 Anemia complicating pregnancy, third trimester (principal); D50.9 Iron deficiency anemia, unspecified
CPT/HCPCS: 96365; J1750; J7050

== ENCOUNTER 2024-09-11 09:59 | Outpatient (CLI) | payer BC, SELFPAY | END 2024-09-11 10:00 | disposition home or self-care (01) | LOC: US 09:59 | PROVIDERS: Visit Provider Obstetrics & Gynecology | DX: Z34.93 Encounter for supervision of normal pregnancy, unspecified, third trimester (principal); Z3A.36 36 weeks gestation of pregnancy | CPT/HCPCS: 76816; 87081; 87653 ==

== ENCOUNTER 2024-10-02 16:36 | Outpatient (CLI) | payer BC, SELFPAY ==
[2024-10-02 16:50] VITALS: PULSE 97; O2SAT 98
[2024-10-02 16:51] VITALS: BP 125/77; PULSE 92; PULSE 97; RESP 18; TEMP 36.6
--- NOTE | 2024-10-23 16:11 | PC.OBNST ---
NST Note NST Note Start: 10/16/24 03:43 Freq: ONCE Status: Active Protocol: Document 10/02/24 19:00 [facility] (Rec: 10/23/24 16:10 [facility] No Response) NST Note 5 Para (# of births) 3 EDC 10/05/24 Gestational Age In Weeks & Days 42 Weeks & 4 Days High Risk Factors Advanced Maternal Age Patient Presented with Complaint(s) of Contractions/cramping Reactive Yes Appropriate for Gestational Age Yes RN Latasha Miguel RN Date 10/02/24 Reactive Yes Appropriate for Gestational Age Yes DEMETRIO Toth CNM OB NST charge Yes Complete NST Note via Write Note Yes The provider's electronic signature indicates the NST is reactive/appropriate for gestational age. *Note to provider: If an addendum is required, open the patient's chart and click on the note under the Nurse/Allied Health tab.
== END 2024-10-02 19:15 | disposition home or self-care (01) ==
LOC: OB OUT 16:36 → OB 16:37
PROVIDERS: Absent Provider Advanced Practice Midwife; Visit Provider Advanced Practice Midwife
DX: O09.523 Supervision of elderly multigravida, third trimester (principal); Z3A.39 39 weeks gestation of pregnancy
CPT/HCPCS: 59025; G0463

== ENCOUNTER 2024-10-11 03:05 | Inpatient (IN) | payer BC, SELFPAY ==
[2024-10-11] VITALS (13 sets, daily range): BP systolic 104–129; BP diastolic 61–80; PULSE 68–100; RESP 16–20; TEMP 36.4–37.2; O2SAT 97; BMI 27.5
[2024-10-11 03:27] LABS: Basophils Absolute Auto 0.01 K/uL (0.00-0.30); Basophils Percent Auto 0.2 % (0.0-3.0); Eosinophils Absolute Auto 0.06 K/uL (0.00-0.50); Eosinophils Percent Auto 0.9 % (0.0-7.0); Hematocrit* 38.6 % (33.0-51.0); Hemoglobin* 13.4 gm/dL (12.0-16.0); Immature Granulocytes Abs Auto 0.03 K/uL (0.00-0.30); Immature Granulocytes Pct Auto 0.5 %; Lymphocytes Percent Auto 36.9 % (20-44); Mean Corpuscular HGB Conc 35 gm/dL (32-36); Mean Corpuscular Hemoglobin 31 pg (26-34); Mean Corpuscular Volume 90 fL (80-100); Monocytes Percent Auto 6.2 % (0.0-11.0); Neutrophils Percent Auto 55.3 % (42.0-72.0); Platelet Count* 165 K/uL (140-440); RDW Coefficient of Variation % 13.5 % (11.5-15.5); Red Blood Count* 4.28 m/uL (4.00-5.20)
[2024-10-11 03:28] LABS: Slide Review Reflex No
[2024-10-11] MEDS: OXYTOCIN 30 unit/500 ML in NS 30 UNIT/500 ML BAG 300 UNIT IVPB (03:50)
--- NOTE | 2024-10-11 04:25 | W.PM.LDBA ---
Subjective History of Present Illness Date Seen: 10/11/24 Narrative: Patient is being admitted to Labor and Delivery for advanced stages of active labor. She is a 38 year old at 39 weeks 4 days gestation. Her full history and physical was dictated by Dr. Zavala on 09/18/2024. Please see this for details. Specific Issues/Plans Partner: H&P:?DR. Zavala on 09/18/24 # history of , IOL for unstable lie, nonreassuring heart rate 2 vaginal deliveries prior to Desires consult done MFMU calc 85% # History of molar (partial molar) After delivery, careful examination of the placenta. If abnormal send placenta to pathology. Beta hCG at 6 weeks to exclude choriocarcinoma. #AMA Maternity T21: drawn 03/27 - results negative Level 2 ultrasound: complete, see below # intermittent right upper quadrant pain 04/23/2024: Normal liver function panel Right upper quadrant ultrasound pending: Completed 05/01/24: Normal right upper quadrant ultrasound. #Anxiety Mag therapy recommended. Taking sertraline 100 mg daily Level 2 US on 05/13/2024: EFW 293 g at 62nd percentile, AC 58%ile. No anomalies detected. Cervix long and closed. Posterior placenta, 5cm from os. Growth US 09/11/24: EFW 32%, AC 67%, HC 5%, FL 7%. COVID: booster, 04/10/2024dvanced maternal age? Flu: 04/10/2024 TDAP:07/29/2024 RSV: 08/13/24 OB - Problem Based A/P Additional Plan (1) Supervision of high risk in third trimester: Status: Acute (2) AMA (advanced maternal age) multigravida 35+: Status: Acute (3) Previous delivery affecting : Status: Acute Plan ASSESSMENT:?? 38 at 39 4/7 weeks gestation?? complicated by:?? Labor type:Spontaneous, Active labor?? Category 1 FHR pattern.??? Labor complicated by: TOLAC, axiety with SSRI use, AMA? GBS negative ?? PLAN:?? 1. Routine intrapartum cares as ordered. Continue with expectant management??(This note was wwritten post delivery due to advanced stages of labor and patient needing to push on my arrival.) 2. Monitoring per policy, continuous or intermittent? 3. Planning unmedicated . Candidate for analgesia of choice.??? 4. Patient encouraged to reposition and ambulate to promote physiologic labor and .?? 5. Dr Bert Shepard notified by nursing of patient's arrival to unit.? 6. Anticipate ? OB Exam Physical Exam Vital signs: Pulse BP 80 120/67 10/11/24 04:14 10/11/24 04:14 Narrative: Vitals Reviewed Constitutional:? Alert and oriented x3 HEENT:? Normocephalic, atraumatic Neck:? Supple Lungs:? Clear to auscultation bilaterally Heart:? Regular rate and rhythm, no murmur, rub or gallop Abdomen:? Soft, nontender, and gravid. Vertex by Tong's, confirmed with cervical exam. Extremities:? No edema or erythema Cervix: 10 cm/100%/0 station/vertex per nursing on admit, BBOW NST: 120 bpm/moderate variability/accelerations present/decelerations absent/contractions q 2-3 min
--- NOTE | 2024-10-11 04:26 | W.PM.OBVAGDE ---
OB Procedure Vag Delivery Mother Details Mother Details: The patient is a 38 year-old, 5, Para 3013, admitted on 10/11/24 at 39w 4Days gestation. Admission Date: 10/11/24 Additional Details Amniotic Membrane Status: SROM Amniotic Membrane Rupture Date: 10/11/24 Amniotic Membrane Rupture Time: 03:29 Amniotic Membrane Fluid Description: Meconium Stained (thin) Analgesia/Anesthesia Type: None Waterbirth: No Pitcoin: No (for [facility] only) Intrapartal Events: Precipitous Labor <3 Hrs Labor Onset: 02:00 Complete: 03:06 Pushin:35 Heart: heart tones during second stage were Cat 2 with baseline change to 90s or prolonged decel for 5 min with head becoming visible at the perineum, delivery hastened effectively. some intermittent increases back over 120s were audible and moderate variability remained thru out. Delivery Details Delivery Date: 10/11/24 Delivery Time: 03:48 Route of delivery: Infant Gender: Female Infant Viability: Alive; Heart Rate Present Position at Delivery: OA Delivery Details: Patient was admitted for advance stage of labor and progressed quickly.. SROM noted at 0329 with with thin mec stained fluid. Patient was complete at arrival, but did not feel pushy until after SROM and began pushing at 0335 with my arrival.. of a viable female at 0348 in Hands and knees on the bed. Vertex delivered OA. One loose nuchal cord noted when body was delivering easily and without incident. passed to mothers abdomen and a vigorous cry ensued with stimulation. Florence was assisted into semifowlers. Cord was clamped and cut at > 5 minutes when it had stopped pulsing. APGARS were 7 at one minute and 8 at five minutes respectively. Intact placenta with a 3 vessel cord delivered spontaneously at 0356. Fundus firm. 2nd degree perineal identified and repaired in typical fashion under lidocaine anesthesia. Small first degree labial lac that was hemostatic and not repaired. QBL 106 cc. Mother and baby stable; mother plans to breastfeed. Infant weight pending.? 1 Minute Interval Total Score: 7 5 Minute Interval Total Score: 8 Additional Details Shoulder Dystocia: No Placenta Delivery Time: 03:56 Placental Delivery Description: Spontaneous Delivery repair: Vicryl (3-0) Procedure Done: Global Blood Loss: 106 Laceration: Perineal - 2nd Degree (repaired. Small left labial hemostatic and not repaired.) Episiotomy Description: None Blood Loss Measurement Type: QBL Bakri Used: No Sponge/Need Count Correct: Yes Cord Vessel Description: 3 Vessels, Nuchal Cord (x1) and Loose Event Summary Status: Mother and infant were stable after delivery. Disposition: floor
[2024-10-11] MEDS: IBUPROFEN 600 MG TABLET PO ×3 (04:36→18:24)
[2024-10-11] MEDS: LIDOCAINE 1 % PF 30 ML INJECTION (04:52)
[2024-10-11] MEDS: ACETAMINOPHEN 500 MG TABLET 1000 MG PO ×3 (09:46→22:58)
[2024-10-11] MEDS: DOCUSATE SODIUM 100 MG CAPSULE PO ×2 (09:46→19:41)
[2024-10-11] MEDS: LANOLIN CREAM 1 APPLIC TOPICAL (10:04)
[2024-10-12] MEDS: IBUPROFEN 600 MG TABLET PO ×2 (01:03→07:31)
[2024-10-12 04:19] VITALS: BP 105/65; PULSE 69; RESP 16
[2024-10-12 06:22] LABS: Hemoglobin* 11.2 gm/dL (12.0-16.0)
[2024-10-12] MEDS: ACETAMINOPHEN 500 MG TABLET 1000 MG PO (06:30)
[2024-10-12] MEDS: DOCUSATE SODIUM 100 MG CAPSULE PO (07:32)
[2024-10-12 07:36] VITALS: BP 115/77; PULSE 79; RESP 16; TEMP 36.3
--- NOTE | 2024-10-12 07:50 | P.DS_ITS ---
DS: Providers Provider Date Seen: 10/12/24 Date of admission: 10/11/24 03:05 Primary care physician: Not a Local Provider Admitting Clinician: Chelsie Chau CNM Attending Physician on discharge: Rosa Langley CNM DS: Diagnosis Discharge Diagnosis (1) care and examination immediately after delivery: Status: Acute (2) Lactating mother: Status: Acute (3) , delivered, current hospitalization: Status: Acute Exam Narrative: Exam Narrative: GENERAL APPEARANCE:? normal affect, alert, no distress MOOD:? appropriate CHEST:? clear to auscultation HEART:? regular rate and rhythm ABDOMEN:? soft, non-tender the uterine fundus is At Umbilicus, off to right and is appropriate for the stage of recovery. Encouraged to void. PERINEUM:? mild edema of the perineum, there is a Perineal Laceration,?2nd degree, that is healing well. EXTREMITIES:? normal and no edema Const: Vital Signs, click to edit/add: Vital Signs - 24 hr 10/11/24 09:45 10/11/24 14:00 10/11/24 19:22 Temperature 97.9 F 97.6 F Pulse Rate [Pulse Oximeter] 79 79 79 Respiratory Rate 18 16 16 Blood Pressure [Ri ght Arm] 113/72 126/80 109/71 Pulse Oximetry 97 97 97 Oxygen Delivery Me thod Room Air Room Air Room Air 10/11/24 23:07 10/12/24 04:19 10/12/24 07:36 Temperature 97.3 F L Pulse Rate [Pulse Oximeter] 77 69 79 Respiratory Rate 20 16 16 Blood Pressure [Ri ght Arm] 104/61 105/65 115/77 Pulse Oximetry 97 Oxygen Delivery Me thod Room Air Documenting provider has reviewed patient's vital signs: yes OB - DS: Summary Hospital Course Hospital Course: Elsa is a 38 y.o. G 5 P 4 who was admitted to [facility] for spontaneous onset of labor. ?She had a precipitous that was uncomplicated. The patient feels well. ?The pain is well controlled with current medications. ?She has no new complaints. ?She is breast feeding and reports things are going well. the patient has done well.? Vitals have been stable.? She has remained afebrile.? Has a good appetite, is tolerating a general diet. ?She is voiding without difficulty.? She is passing gas and has not had a bowel movement.? She is ambulating and denies any dizziness.? Has small amount of rubra lochia. She is planning condoms for prevention. Problems: none Discharge home with baby.? Follow up in 2 weeks and 6 weeks.? , may see if needed? Hgb 11.2. ?? For pain control of perineum, breast and pelvic pain, take 600 mg Ibuprofen every 6 hours as needed by mouth or 1000 mg acetaminophen (Tylenol) every 6 hours by mouth as needed. You can alternate these so you are taking something every 3 hours as needed. A heating pad can also be used for your abdomen or breasts. You may also take docusate sodium up to twice daily to soften your stools and help to prevent constipation. You may wean off of it when your stools return to normal.? Peripartum Data Infant delivery method: Vaginal Laceration description: Perineal - 2nd Degree complications: none [place] Gender: Female Infant Discharge Plan: Home Status at Discharge Functional status at discharge: independent ambulation Overall status at discharge: patient is progressing back to baseline Time Spent with Patient Time attestation: Total time spent providing and/or coordinating discharge services: Time spent: Less than 30 minutes Discharge Plan Discharge Disposition: Home, Self-Care Date of Admission: 10/11/24 03:05 Attending Provider on Discharge: Rosa Langley Primary Care Provider: Provider,Not a Local Condition: Stable Anticipated Discharge Date/Time: 10/12/24 12:00 Discharge Medications: New ibuprofen 600 mg Tablet 600 mg PO Q6H PRNQty: 60 0RF acetaminophen 500 mg Tablet 1,000 mg PO Q6H PRNQty: 0 0RF Continued prenat.vits,swathi,pta-lhlm-aqtml Tablet 1 tab PO QDAY docusate sodium 100 mg Capsule 100 mg PO DAILY PRNQty: 90 0RF Rx Instructions: Take 1-2 tablets daily as needed for constipation. Discontinued aspirin 81 mg tablet,delayed release (DR/EC) 81 mg PO QDAY Discharge Orders: Discharge Order (Routine); Ordered 10/12/24 Ordered By: Rosa Langley Patient Education: OB Over the Counter Medication Information, OB Vaginal/Breast Feeding Additional Instructions: Discharge instructions were reviewed with the patient including signs and symptoms of infection and home going medications Nothing vaginally for 6 weeks: no tampons or intercourse Off Work or School for 6 weeks 2-week visit: discuss feeding concerns, review control options and screen for anxiety/depression. 6-week visit for an annual exam. consultation services are available to all mothers and babies for the first year after delivery.? To make an appointment, please call [phone]. Activity Level: Activity as Tolerated Discharge Diet: Regular Follow Up Appointments: [facility] [Provider Group] Forms: [employer] Info Instructions
== END 2024-10-12 11:56 | disposition home or self-care (01) | DRG 560 ==
LOC: OB OUT 03:10 → OB 03:10
PROVIDERS: Admitting Provider Midwife; Visit Provider Midwife
DX: O48.0 Post-term pregnancy (principal); O70.1 Second degree perineal laceration during delivery; O62.3 Precipitate labor; O77.0 Labor and delivery complicated by meconium in amniotic fluid; O34.211 Maternal care for low transverse scar from previous cesarean delivery; O99.344 Other mental disorders complicating childbirth; F41.9 Anxiety disorder, unspecified; Z3A.40 40 weeks gestation of pregnancy; Z37.0 Single live birth
CPT/HCPCS: 36415; 85018; 85025; 86592; 86850; 86900; 86901; A9270; J2003

== ENCOUNTER 2025-03-19 11:14 | Outpatient (CLI) | payer BC, SELFPAY ==
[2025-03-21 02:07] LABS: HPV Source Cervix
[2025-03-22 19:59] LABS: Pap Test Digital Imaging Done
== END 2025-03-19 11:15 | disposition home or self-care (01) ==
PROVIDERS: Visit Provider Physician Assistant
DX: N91.2 Amenorrhea, unspecified (principal); N63.10 Unspecified lump in the right breast, unspecified quadrant; Z12.4 Encounter for screening for malignant neoplasm of cervix; Z11.51 Encounter for screening for human papillomavirus (HPV)
CPT/HCPCS: 87624; 87625; 88141; 88142; 88175

== ENCOUNTER 2025-04-06 09:36 | Outpatient (CLI) | payer BC, SELFPAY ==
--- NOTE | 2025-04-06 09:45 | CRLHL7_ITS ---
For Patients: As a result of the Cures Act, medical imaging exams and procedure reports are released immediately into your electronic medical record. You may view this report before your referring provider. If you have questions, please contact your health care provider. BILATERAL DIAGNOSTIC MAMMOGRAM WITH COMPUTER-AIDED DETECTION AND TOMOSYNTHESIS RIGHT BREAST ULTRASOUND CLINICAL HISTORY: RIGHT breast lump. COMPARISON: 12/11/2022. TECHNIQUE: Digital BILATERAL mammogram in four projections with computer-aided detection. Tomosynthesis was used in this interpretation. Real-time ultrasound imaging of RIGHT breast with imaging documentation. BREAST COMPOSITION: The breasts are extremely dense, which lowers the sensitivity of mammography. FINDINGS: 3D CC/MLO BILATERAL mammogram images submitted. Scattered benign punctate calcifications are present bilaterally. No architectural distortion or adenopathy. Targeted RIGHT breast ultrasound performed in the area of concern at 10 o`clock, 7 cm from the nipple. In this location, there is a complex cystic structure with internal septations which measures 1.6 x 1.0 x 1.8 cm. No internal vascularity. No distal acoustic shadowing. This is similar to the prior exam. IMPRESSION: Benign galactocele RIGHT breast 10 o`clock, 7 cm from the nipple, measures 1.8 cm, not significantly changed. No evidence of lactating adenoma or malignancy. RECOMMENDATIONS: Age-appropriate screening mammography. Clinical follow-up. A lay language report of this examination will be provided to the patient. BI-RADS Category 2: Benign. Dictated by Aly Butterfield MD @ 04/06/2025 11:11:07 AM /sp SP/Dictated by: Aly Butterfield MD @ 04/06/2025 11:11:00 AM (Electronically Signed)
--- NOTE | 2025-04-06 10:15 | CRLHL7_ITS ---
For Patients: As a result of the Century Cures Act, medical imaging exams and procedure reports are released immediately into your electronic medical record. You may view this report before your referring provider. If you have questions, please contact your health care provider. PLEASE SEE BILATERAL BREAST DIAGNOSTIC MAMMOGRAM PERFORMED SAME DAY. CRL:sp SP/Dictated by: Aly Butterfield MD @ 04/06/2025 10:56:00 AM (Electronically Signed)
== END 2025-04-06 09:37 | disposition home or self-care (01) ==
LOC: MAMMO 09:37
PROVIDERS: Visit Provider Physician Assistant
DX: N63.10 Unspecified lump in the right breast, unspecified quadrant (principal); R92.343 Mammographic extreme density, bilateral breasts
CPT/HCPCS: 76642; 77066; G0279

== ENCOUNTER 2025-06-24 10:06 | Outpatient (CLI) | payer BC, SELFPAY | END 2025-06-24 10:07 | disposition home or self-care (01) | PROVIDERS: Visit Provider Physician Assistant | DX: R53.83 Other fatigue (principal); L65.9 Nonscarring hair loss, unspecified | CPT/HCPCS: 82728; 84443 ==